=== PATIENT | female | born 1950 | race Caucasian/White ===

== ENCOUNTER → 2016-05-13 | Outpatient (CLI) | payer BC ==
--- NOTE | 2016-05-13 13:42 | XR ---
EXAMINATION TYPE: XR cervical spine limited DATE OF EXAM: 05/13/2016 1:25 PM TECHNIQUE: Frontal, lateral, and open mouth view of the cervical spine are obtained. HISTORY: Neck pain, segmental and somatic dysfunction. COMPARISON: None FINDINGS: The cervical spine is visualized in its entirety from C1 thru the top of T1 level, it is s traightened in alignment without evidence of acute fracture or dislocation. There is slight grade 1 r etrolisthesis of C5 on C6. The pre-vertebral soft tissue appears within normal limits. The C1-C2 art iculation is within normal limits on the open mouth view. Vertebral body heights are maintained. Ther e is moderate disc space narrowing C5-C6 and C6-C7 levels with mild to moderate spurring at these lev els noted. Soft tissue is unremarkable. IMPRESSION: Straightening of cervical spine with mild to moderate degenerative changes C5-C6 and C6-C 7 level noted.
--- NOTE | 2016-05-13 13:43 | XR ---
EXAMINATION TYPE: XR lumbar spine 2 or 3V DATE OF EXAM: 05/13/2016 1:25 PM CLINICAL HISTORY: Low back and right hip pain. TECHNIQUE: Frontal and lateral images of the lumbar spine are obtained. COMPARISON: None FINDINGS: There are 5 lumbar type vertebral bodies identified. Osseous structures are demineralized which is noted lower radiographic sensitivity. The lumbar spine shows loss of normal lumbar lordosis without evidence of acute fracture or dislocation. Vertebral body heights are within normal limits. There is fairly moderate multilevel disc space narrowing at L1-L2, L2-L3, and L5-S1 levels. No signif icant spurring is seen. Punctate densities overlying both kidneys are suspicious for multiple small r enal calculi. IMPRESSION: Loss of normal lumbar lordosis with moderate multilevel degenerative changes. Multiple bi lateral small renal calculi suspected. Consider CT confirmation.
== END | disposition home or self-care (01) ==
LOC: RADXRMAIN 13:01
PROVIDERS: ATTEND Chiropractor
DX: M47.812 Spondylosis without myelopathy or radiculopathy, cervical region (principal); M47.816 Spondylosis without myelopathy or radiculopathy, lumbar region
CPT/HCPCS: 72040; 72100

== ENCOUNTER 2016-12-11 13:08 | Inpatient (IN) | payer BC, MEDICARE ==
[2016-12-11] MEDS ORDERED: SODIUM CHLORIDE 0.9% 1,000 ML IV STA ×2 (13:53)
[2016-12-11] MEDS ORDERED: ACETAMINOPHEN IV (For NPO) 1,000 MG in SALINE 100 100ML.BAG IVPB STA (13:54)
--- NOTE | 2016-12-11 13:56 | ED ---
General Adult HPI - General Chief complaint: Abdominal Pain Stated complaint: poss kidney stones-sent by Time Seen by Provider: 12/11/16 13:47 Source: patient, RN notes reviewed Mode of arrival: wheelchair Limitations: no limitations - History of Present Illness Initial comments: Patient 66-year-old female who presents emergency room today with a chief complaint of lower abdominal pain and a right-sided flank pain over the last day. Patient does admit to symptoms of nausea vomiting. She states she's also felt hot and cold. She does admit that she's had chills. She states she was taking Tylenol/ibuprofen for fever. States not taken anything since 5 AM this morning. The patient does admit to pain locally to the lower back at this time which she states feels consistent with kidney stone that she's had in the past. Patient currently rates pain 10. Patient denies any recent fever, chills, shortness of breath, chest pain, numbness or tingling, dysuria or hematuria, constipation or diarrhea, headaches or visual changes, or any other complaints. - Related Data Home Medications Medication Instructions Recorded Confirmed Aloe Vera Juice 1.5 oz PO Q48H 12/11/16 12/11/16 Aspirin EC [Ecotrin Low Dose] 81 mg PO DAILY 12/11/16 12/11/16 Calcium Carbonate/Vitamin D3 1 tab PO DAILY 12/11/16 12/11/16 [Calcium 500-Vit D3 600 Tablet] Cholecalciferol [Vitamin D3] 1,000 unit PO DAILY 12/11/16 12/11/16 Cranberry And Vitamin C 1 tab PO DAILY 12/11/16 12/11/16 L.acidoph,Paracasei, B.lactis 1 cap PO DAILY 12/11/16 12/11/16 [Probiotic] Magnesium 200 mg PO DAILY 12/11/16 12/11/16 Seven Red Krill Oil 1 tab PO DAILY 12/11/16 12/11/16 Multivitamins, Thera [Multivitamin 1 tab PO DAILY 12/11/16 12/11/16 (formulary)] Potassium 99 mg PO DAILY 12/11/16 12/11/16 Turmeric Root Extract [Turmeric] 500 mg PO DAILY 12/11/16 12/11/16 Ubidecarenone [Co Q-10] 100 mg PO DAILY 12/11/16 12/11/16 Vitamin K2 & Vitamin D3 1 tab PO DAILY 12/11/16 12/11/16 Allergies Allergy/AdvReac Type Severity Reaction Status Date / Time No Known Allergies Allergy Verified 12/11/16 13:26 Review of Systems ROS Statement: Those systems with pertinent positive or pertinent negative responses have been documented in the HPI. ROS Other: All systems not noted in ROS Statement are negative. Past Medical History Past Medical History: No Reported History History of Any Multi-Drug Resistant Organisms: None Reported Past Surgical History: Tonsillectomy Additional Past Surgical History / Comment(s): nose, toes Past Psychological History: No Psychological Hx Reported Smoking Status: Never smoker Past Alcohol Use History: Occasional Past Drug Use History: None Reported General Exam - General Exam Comments Initial Comments: General: The patient is awake and alert, in no distress, and does not appear acutely ill. Eye: Pupils are equal, round and reactive to light, extra-ocular movements are intact. No nystagmus. There is normal conjunctiva bilaterally. No signs of icterus. Ears, nose, mouth and throat: There are moist mucous membranes and no oral lesions. Neck: The neck is supple, there is no tenderness or JVD. Cardiovascular: There is a regular rate and rhythm. No murmur, rub or gallop is appreciated. Respiratory: Lungs are clear to auscultation, respirations are non-labored, breath sounds are equal. No wheezes, stridor, rales, or rhonchi. Gastrointestinal: Normal appearance abdomen. Normal bowel sounds. Abdomen soft on palpation. Patient does have mild tenderness in the left upper quadrant. Mild tenderness left CVA. No rebound tenderness. No guarding. Musculoskeletal: Normal ROM, no tenderness. Strength 5/5. Sensation intact. Pulses equal bilaterally 2+. Neurological: A&O x 3. CN II-XII intact, There are no obvious motor or sensory deficits. Coordination appears grossly intact. Speech is normal. Skin: Skin is warm and dry and no rashes or lesions are noted. Psychiatric: Cooperative, appropriate mood & affect, normal judgment. Limitations: no limitations Course Vital Signs 12/11/16 12/11/16 12/11/16 13:10 14:36 16:02 Temperature 101.0 F H 99.7 F H 100.1 F H Pulse Rate 110 H 104 H 94 Respiratory 17 18 18 Rate Blood Pressure 171/100 155/74 135/62 O2 Sat by Pulse 98 97 95 Oximetry Medical Decision Making - Medical Decision Making Patient's CAT scan reviewed does show multiple small bilateral nonobstructing renal calculi, left more numerous than the right. There is no obstructing 3 mm calculus at the left UVJ causing mild to moderate left-sided hydronephrosis. Patient's labs been reviewed shows 15,000 white count. Patient negative lactic acid. Urinalysis does show evidence for infection. Started on Rocephin here in the emergency room. Patient does have fever at triage. Will be admitted continued on further antibiotics. Patient and family at bedside aware the plan states understanding. - Lab Data Result diagrams: 12/11/16 13:40 12/11/16 13:40 Lab Results 12/11/16 12/11/16 12/11/16 Range/Units 13:40 13:40 13:40 WBC 15.3 H (3.8-10.6) k/uL RBC 4.62 (3.80-5.40) m/uL Hgb 14.0 (11.4-16.0) gm/dL Hct 42.4 (34.0-46.0) % MCV 91.8 (80.0-100.0) fL MCH 30.3 (25.0-35.0) pg MCHC 33.0 (31.0-37.0) g/dL RDW 15.0 (11.5-15.5) % Plt Count 179 (150-450) k/uL Neutrophils % 93 % Lymphocytes % 2 % Monocytes % 5 % Eosinophils % 0 % Basophils % 0 % Neutrophils # 14.2 H (1.3-7.7) k/uL Lymphocytes # 0.3 L (1.0-4.8) k/uL Monocytes # 0.7 (0-1.0) k/uL Eosinophils # 0.0 (0-0.7) k/uL Basophils # 0.0 (0-0.2) k/uL Sodium 134 L (137-145) mmol/L Potassium 3.3 L (3.5-5.1) mmol/L Chloride 98 (98-107) mmol/L Carbon Dioxide 23 (22-30) mmol/L Anion Gap 13 mmol/L BUN 19 H (7-17) mg/dL Creatinine 0.86 (0.52-1.04) mg/dL Est GFR (MDRD) Af Amer >60 (>60 ml/min/1.73 sqM) Est GFR (MDRD) Non-Af >60 (>60 ml/min/1.73 sqM) Glucose 108 H (74-99) mg/dL Plasma Lactic Acid Mina 1.2 (0.7-2.0) mmol/L Calcium 9.0 (8.4-10.2) mg/dL Total Bilirubin 2.0 H (0.2-1.3) mg/dL AST 30 (14-36) U/L ALT 31 (9-52) U/L Alkaline Phosphatase 86 (38-126) U/L Total Protein 6.8 (6.3-8.2) g/dL Albumin 4.0 (3.5-5.0) g/dL Amylase 37 (30-110) U/L Lipase 60 (23-300) U/L Urine Color Urine Appearance (Clear) Urine pH (5.0-8.0) Ur Specific [place] (1.001-1.035) Urine Protein (Negative) Urine Glucose (UA) (Negative) Urine Ketones (Negative) Urine Blood (Negative) Urine Nitrite (Negative) Urine Bilirubin (Negative) Urine Urobilinogen (<2.0) mg/dL Ur Leukocyte Esterase (Negative) Urine RBC (0-5) /hpf Urine WBC (0-5) /hpf Urine WBC Clumps (None) /hpf Ur Squamous Epith Cells (0-4) /hpf Urine Bacteria (None) /hpf Urine Mucus (None) /hpf 12/11/16 Range/Units 13:55 WBC (3.8-10.6) k/uL RBC (3.80-5.40) m/uL Hgb (11.4-16.0) gm/dL Hct (34.0-46.0) % MCV (80.0-100.0) fL MCH (25.0-35.0) pg MCHC (31.0-37.0) g/dL RDW (11.5-15.5) % Plt Count (150-450) k/uL Neutrophils % % Lymphocytes % % Monocytes % % Eosinophils % % Basophils % % Neutrophils # (1.3-7.7) k/uL Lymphocytes # (1.0-4.8) k/uL Monocytes # (0-1.0) k/uL Eosinophils # (0-0.7) k/uL Basophils # (0-0.2) k/uL Sodium (137-145) mmol/L Potassium (3.5-5.1) mmol/L Chloride (98-107) mmol/L Carbon Dioxide (22-30) mmol/L Anion Gap mmol/L BUN (7-17) mg/dL Creatinine (0.52-1.04) mg/dL Est GFR (MDRD) Af Amer (>60 ml/min/1.73 sqM) Est GFR (MDRD) Non-Af (>60 ml/min/1.73 sqM) Glucose (74-99) mg/dL Plasma Lactic Acid Mina (0.7-2.0) mmol/L Calcium (8.4-10.2) mg/dL Total Bilirubin (0.2-1.3) mg/dL AST (14-36) U/L ALT (9-52) U/L Alkaline Phosphatase (38-126) U/L Total Protein (6.3-8.2) g/dL Albumin (3.5-5.0) g/dL Amylase (30-110) U/L Lipase (23-300) U/L Urine Color Yellow Urine Appearance Cloudy H (Clear) Urine pH 7.0 (5.0-8.0) Ur Specific [place] 1.010 (1.001-1.035) Urine Protein 2+ H (Negative) Urine Glucose (UA) Negative (Negative) Urine Ketones 1+ H (Negative) Urine Blood Small H (Negative) Urine Nitrite Positive H (Negative) Urine Bilirubin Negative (Negative) Urine Urobilinogen <2.0 (<2.0) mg/dL Ur Leukocyte Esterase Large H (Negative) Urine RBC 22 H (0-5) /hpf Urine WBC 138 H (0-5) /hpf Urine WBC Clumps Moderate H (None) /hpf Ur Squamous Epith Cells 1 (0-4) /hpf Urine Bacteria Moderate H (None) /hpf Urine Mucus Occasional H (None) /hpf Disposition Clinical Impression: Kidney stone, Fever, UTI (urinary tract infection) Disposition: ADMITTED IP TO THIS HOSP Condition: Stable Referrals: Vinny Calles MD [Primary Care Provider] - 1-2 days Time of Disposition: 16:15
[2016-12-11 14:06] LABS: Basophils % (A) 0 %; CH 31.1; CHCM 34.1; Eosinophils % (A) 0 %; HCT 42.4 % (34.0-46.0); HDW 2.41; Luc % (Auto) 1; Lymphocytes # (A) 0.3 k/uL (1.0-4.8); Lymphocytes % (A) 2 %; MCH 30.3 pg (25.0-35.0); MCV 91.8 fL (80.0-100.0); Monocytes # (A) 0.7 k/uL (0-1.0); Monocytes % (A) 5 %; Neutrophils # (A) 14.2 k/uL (1.3-7.7); Neutrophils % (A) 93 %; RBC 4.62 m/uL (3.80-5.40); WBC 15.3 k/uL (3.8-10.6)
[2016-12-11 14:14] LABS: Appearance,Urine Cloudy (Clear); Bacteria,Urine Moderate /hpf; Bilirubin,Urine Negative (Negative); Glucose,Urine (UA) Negative (Negative); Ketones,Urine 1+ (Negative); Leukocyte Esterase,Urine Large (Negative); Mucus,Urine Occasional /hpf; Nitrite,Urine Positive (Negative); Particle Count 5513; Protein,Urine 2+ (Negative); RBC,Urine 22 /hpf (0-5); Squamous Epithelial Cell,Urine 1 /hpf (0-4); UA Billing (MACRO vs. MICRO) MICRO; Urobilinogen,Urine <2.0 mg/dL (<2.0); WBC,Urine 138 /hpf (0-5)
[2016-12-11 14:19] LABS: ALT 31 U/L (9-52); AST 30 U/L (14-36); Alkaline Phosphatase 86 U/L (38-126); Amylase 37 U/L (30-110); Anion Gap 13 mmol/L; Blood Urea Nitrogen 19 mg/dL (7-17); Carbon Dioxide 23 mmol/L (22-30); Chloride 98 mmol/L (98-107); Glucose 108 mg/dL (74-99); Non-African American GFR(MDRD) >60 (>60 ml/min/1.73 sqM); Potassium 3.3 mmol/L (3.5-5.1); Sodium 134 mmol/L (137-145); Total Protein 6.8 g/dL (6.3-8.2)
[2016-12-11] MEDS ORDERED: KETOROLAC 30 MG/ML 1 ML VIAL IVP STA (15:13)
--- NOTE | 2016-12-11 15:44 | CT ---
EXAMINATION TYPE: CT abdomen pelvis wo con DATE OF EXAM: 12/11/2016 HISTORY: Left flank pain, history of stones. CT DLP: 908.00 mGycm. Automated Exposure Control for Dose Reduction was Utilized. TECHNIQUE: CT scan of the abdomen and pelvis is performed without oral or IV contrast. COMPARISON: NONE FINDINGS: Within the limitations of a non-contrast study, the following observations are made. LUNG BASES: Tiny pericardial effusion is present. There is dependent atelectasis in both bases. LIVER/GB: Liver is diffusely low dense consistent with fatty infiltration. There are a few simple patricia earing thin-walled cysts scattered throughout the liver. PANCREAS: No significant abnormality is seen. SPLEEN: No significant abnormality is seen. ADRENALS: There is slight nodular thickening to left adrenal gland felt to reflect benign hyperplasia . KIDNEYS: There are 6-10 calculi scattered throughout the right kidney measuring up to 4 mm on long ax is most prominent lower pole level. There are approximately 15 calculi scattered throughout the left kidney measuring up to 5 mm on long axis. There is asymmetric left-sided renal enlargement with mild to moderate perinephric fat stranding extending along course of the proximal left ureter. At left UVJ there is obstructing 3 mm calculus causing mild to moderate left-sided pyelocaliectasis and proximal hydroureter. No right-sided hydronephrosis or obstructing calculus is seen. No intraluminal calculus in the bladder is present. BOWEL: Normal-appearing appendix is seen inferiorly from the cecum. There is no suspicious small or l arge bowel dilatation. GENITAL ORGANS: Uterus is retroverted in shape and normal in size. Small amount of free fluid in righ t pelvic cul-de-sac is noted. LYMPH NODES: No greater than 1cm abdominal or pelvic lymph nodes are appreciated. OSSEOUS STRUCTURES: Osseous structures are demineralized. Facet arthropathy lower lumbar levels is se en. OTHER: No significant additional abnormality is seen. IMPRESSION: Multiple small bilateral nonobstructing renal calculi, left more numerous than right. The re is obstructing 3 mm calculus at left UVJ causing mild to moderate left-sided hydronephrosis.
[2016-12-11] MEDS ORDERED: HYDROmorphone 1 MG/ML 1 ML SYRINGE IV PRN (16:55)
[2016-12-11] MEDS ORDERED: LORazepam 2 MG/ML SYRINGE IV PRN (16:55)
[2016-12-11] MEDS ORDERED: NALOXONE 0.4 MG/ML 1 ML VIAL IV PRN (16:55)
[2016-12-11] MEDS ORDERED: ONDANSETRON 4 MG/2 ML VIAL IVP PRN (16:55)
[2016-12-11] MEDS ORDERED: IBUPROFEN 400 MG TAB PO PRN (16:55)
--- NOTE | 2016-12-11 18:18 | P.HPIM ---
History of Present Illness 66-year-old pleasant female came in with compensative superpubic pain, fever chills patient was seen in the primary care physician's office and the found to have fever and patient was sent in here because of concerns of sepsis. Patient here is found to have highly elevated white blood cell count in the urine along with mild hematuria and CAT scan of the abdomen was obtained which did show bilateral nonobstructing nephrolithiasis. Patient was in the past was told that she has calcium oxalate stones in the past. All the kidney stones or nonobstructing at this time. Patient pain is presently well controlled with pain medications. Patient was having nausea as well as generalized weakness. Patient does have leukocytosis. Review of Systems REVIEW OF SYSTEMS: CONSTITUTIONAL: No fever, no malaise, no fatigue. HEENT: No recent visual problems or hearing problems. Denied any sore throat. CARDIOVASCULAR: No chest pain, orthopnea, PND, no palpitations, no syncope. PULMONARY: No shortness of breath, no cough, no hemoptysis. GASTROINTESTINAL: No diarrhea, no nausea, no vomiting, no abdominal pain. Normoactive bowel sounds. NEUROLOGICAL: No headaches, no weakness, no numbness. HEMATOLOGICAL: Denies any bleeding or petechiae. GENITOURINARY: As mentioned in the interval history MUSCULOSKELETAL/RHEUMATOLOGICAL: Denies any joint pain, swelling, or any muscle pain. ENDOCRINE: Denies any polyuria or polydipsia. The rest of the 14-point review of systems is negative. Past Medical History Past Medical History: No Reported History History of Any Multi-Drug Resistant Organisms: None Reported Past Surgical History: Tonsillectomy Additional Past Surgical History / Comment(s): nose, toes Past Psychological History: No Psychological Hx Reported Smoking Status: Never smoker Past Alcohol Use History: Occasional Past Drug Use History: None Reported Medications and Allergies Home Medications Medication Instructions Recorded Confirmed Type Aloe Vera Juice 1.5 oz PO Q48H 12/11/16 12/11/16 History Aspirin EC [Ecotrin Low Dose] 81 mg PO DAILY 12/11/16 12/11/16 History Calcium Carbonate/Vitamin D3 1 tab PO DAILY 12/11/16 12/11/16 History [Calcium 500-Vit D3 600 Tablet] Cholecalciferol [Vitamin D3] 1,000 unit PO DAILY 12/11/16 12/11/16 History Cranberry And Vitamin C 1 tab PO DAILY 12/11/16 12/11/16 History L.acidoph,Paracasei, B.lactis 1 cap PO DAILY 12/11/16 12/11/16 History [Probiotic] Magnesium 200 mg PO DAILY 12/11/16 12/11/16 History Seven Red Krill Oil 1 tab PO DAILY 12/11/16 12/11/16 History Multivitamins, Thera [Multivitamin 1 tab PO DAILY 12/11/16 12/11/16 History (formulary)] Potassium 99 mg PO DAILY 12/11/16 12/11/16 History Turmeric Root Extract [Turmeric] 500 mg PO DAILY 12/11/16 12/11/16 History Ubidecarenone [Co Q-10] 100 mg PO DAILY 12/11/16 12/11/16 History Vitamin K2 & Vitamin D3 1 tab PO DAILY 12/11/16 12/11/16 History Allergies Allergy/AdvReac Type Severity Reaction Status Date / Time No Known Allergies Allergy Verified 12/11/16 13:26 Physical Exam Vitals: Vital Signs Temp Pulse Resp BP Pulse Ox 12/11/16 17:24 99.8 F H 90 18 136/65 96 12/11/16 16:02 100.1 F H 94 18 135/62 95 12/11/16 14:36 99.7 F H 104 H 18 155/74 97 12/11/16 13:10 101.0 F H 110 H 17 171/100 98 Intake and Output 12/11/16 12/11/16 12/11/16 06:59 14:59 22:59 Other: Weight 62.142 kg Patient Weight 12/12/16 06:59 Weight 62.142 kg PHYSICAL EXAMINATION: GENERAL: The patient is alert and oriented x3, not in any acute distress. Well developed, well nourished. HEENT: Pupils are round and equally reacting to light. EOMI. No scleral icterus. No conjunctival pallor. Normocephalic, atraumatic. No pharyngeal erythema. No thyromegaly. CARDIOVASCULAR: S1 and S2 present. No murmurs, rubs, or gallops. PULMONARY: Chest is clear to auscultation, no wheezing or crackles. ABDOMEN: Soft, nontender, nondistended, normoactive bowel sounds. No palpable organomegaly. MUSCULOSKELETAL: No joint swelling or deformity. EXTREMITIES: No cyanosis, clubbing, or pedal edema. NEUROLOGICAL: Gross neurological examination did not reveal any focal deficits. SKIN: No rashes. Results CBC & Chem 7: 12/11/16 13:40 12/11/16 13:40 Labs: Abnormal Lab Results - Last 24 Hours (Table) 12/11/16 12/11/16 12/11/16 Range/Units 13:40 13:40 13:55 WBC 15.3 H (3.8-10.6) k/uL Neutrophils # 14.2 H (1.3-7.7) k/uL Lymphocytes # 0.3 L (1.0-4.8) k/uL Sodium 134 L (137-145) mmol/L Potassium 3.3 L (3.5-5.1) mmol/L BUN 19 H (7-17) mg/dL Glucose 108 H (74-99) mg/dL Total Bilirubin 2.0 H (0.2-1.3) mg/dL Urine Appearance Cloudy H (Clear) Urine Protein 2+ H (Negative) Urine Ketones 1+ H (Negative) Urine Blood Small H (Negative) Urine Nitrite Positive H (Negative) Ur Leukocyte Esterase Large H (Negative) Urine RBC 22 H (0-5) /hpf Urine WBC 138 H (0-5) /hpf Urine WBC Clumps Moderate H (None) /hpf Urine Bacteria Moderate H (None) /hpf Urine Mucus Occasional H (None) /hpf Assessment and Plan Plan: 1 sepsis: Secondary to urinary tract infection and nephrolithiasis. Patient is on Rocephin urine cultures and blood cultures were obtained. Continue with IV fluids. #2 hypovolemic hyponatremia: Expected to improve with IV fluids. #3 nonobstructive nephrolithiasis: Expected to improve with IV fluids and patient really to follow with urology as an outpatient. #4 leukocytosis due to assessment #1
[2016-12-11] MEDS: KETOROLAC 30 MG/ML 1 ML VIAL IVP PRN (20:25)
[2016-12-11] MEDS: HYDROcodone/APAP 5-325MG 1 EACH TAB PO PRN (20:26)
[2016-12-11] MEDS: ACETAMINOPHEN TAB 325 MG TAB PO PRN (21:24)
[2016-12-12] MEDS: KETOROLAC 30 MG/ML 1 ML VIAL IVP PRN ×3 (03:08→22:37)
[2016-12-12] MEDS: HYDROcodone/APAP 5-325MG 1 EACH TAB PO PRN ×4 (06:14→19:27)
[2016-12-12] MEDS: ACETAMINOPHEN TAB 325 MG TAB PO PRN (06:21)
[2016-12-12 07:45] LABS: Basophils % (A) 0 %; CHCM 32.9; Eosinophils # (A) 0.1 k/uL (0-0.7); Eosinophils % (A) 1 %; HCT 35.5 % (34.0-46.0); Luc # (Auto) 0.09; Luc % (Auto) 1; Lymphocytes # (A) 0.3 k/uL (1.0-4.8); Lymphocytes % (A) 3 %; MCHC 33.9 g/dL (31.0-37.0); MCV 91.6 fL (80.0-100.0); Mean Platelet Volume 7.7; Monocytes # (A) 0.4 k/uL (0-1.0); Monocytes % (A) 3 %; Neutrophils # (A) 9.7 k/uL (1.3-7.7); Neutrophils % (A) 93 %; RBC 3.88 m/uL (3.80-5.40); RDW 13.8 % (11.5-15.5); WBC 10.5 k/uL (3.8-10.6); WBC (Perox) 11.01
[2016-12-12 08:11] LABS: ALT 41 U/L (9-52); AST 31 U/L (14-36); Alkaline Phosphatase 70 U/L (38-126); Anion Gap 7 mmol/L; Blood Urea Nitrogen 19 mg/dL (7-17); Calcium 7.9 mg/dL (8.4-10.2); Carbon Dioxide 20 mmol/L (22-30); Chloride 109 mmol/L (98-107); Glucose 100 mg/dL (74-99); Non-African American GFR(MDRD) >60 (>60 ml/min/1.73 sqM); Potassium 3.4 mmol/L (3.5-5.1); Sodium 136 mmol/L (137-145)
--- NOTE | 2016-12-12 12:18 | P.PN ---
Subjective 66-year-old pleasant female admitted secondary to sepsis from urinary tract infection patient is found to be bacteremic with gram-negative bacilli. Patient does have nephrolithiasis multiple small nonobstructing renal calculi. We will repeat blood cultures today tomorrow to document clearance. Patient will be continued on Rocephin. Patient is feeling much better today, denied any weakness. Denied any dysuria denied any urinary frequency denied any chest pain denied any nausea denied any new focal weakness. Objective - Vital Signs Vital signs: Vital Signs Temp 99.4 F 12/12/16 07:00 Pulse 96 12/12/16 07:00 Resp 18 12/12/16 07:00 BP 120/66 12/12/16 07:00 Pulse Ox 93 L 12/12/16 07:00 Intake & Output 12/11/16 12/12/16 12/12/16 18:59 06:59 18:59 Intake Total 1020 Balance 1020 Weight 62.142 kg Intake: Intake, IV Titration 300 Amount Sodium Chloride 0.9% 1, 300 000 ml @ 100 mls/hr IV . Q10H STA Rx#:[id number] Oral 720 Other: Voiding Method Toilet # Voids 3 - Exam PHYSICAL EXAMINATION: GENERAL: The patient is alert and oriented x3, not in any acute distress. Well developed, well nourished. HEENT: Pupils are round and equally reacting to light. EOMI. No scleral icterus. No conjunctival pallor. Normocephalic, atraumatic. No pharyngeal erythema. No thyromegaly. CARDIOVASCULAR: S1 and S2 present. No murmurs, rubs, or gallops. PULMONARY: Chest is clear to auscultation, no wheezing or crackles. ABDOMEN: Soft, nontender, nondistended, normoactive bowel sounds. No palpable organomegaly. MUSCULOSKELETAL: No joint swelling or deformity. EXTREMITIES: No cyanosis, clubbing, or pedal edema. NEUROLOGICAL: Gross neurological examination did not reveal any focal deficits. SKIN: No rashes. - Labs CBC & Chem 7: 12/12/16 07:29 12/12/16 07:29 Labs: Abnormal Lab Results - Last 24 Hours (Table) 12/11/16 12/11/16 12/11/16 Range/Units 13:40 13:40 13:55 WBC 15.3 H (3.8-10.6) k/uL Plt Count (150-450) k/uL Neutrophils # 14.2 H (1.3-7.7) k/uL Lymphocytes # 0.3 L (1.0-4.8) k/uL Sodium 134 L (137-145) mmol/L Potassium 3.3 L (3.5-5.1) mmol/L Chloride (98-107) mmol/L Carbon Dioxide (22-30) mmol/L BUN 19 H (7-17) mg/dL Glucose 108 H (74-99) mg/dL Calcium (8.4-10.2) mg/dL Total Bilirubin 2.0 H (0.2-1.3) mg/dL Total Protein (6.3-8.2) g/dL Albumin (3.5-5.0) g/dL Urine Appearance Cloudy H (Clear) Urine Protein 2+ H (Negative) Urine Ketones 1+ H (Negative) Urine Blood Small H (Negative) Urine Nitrite Positive H (Negative) Ur Leukocyte Esterase Large H (Negative) Urine RBC 22 H (0-5) /hpf Urine WBC 138 H (0-5) /hpf Urine WBC Clumps Moderate H (None) /hpf Urine Bacteria Moderate H (None) /hpf Urine Mucus Occasional H (None) /hpf 12/12/16 12/12/16 Range/Units 07:29 07:29 WBC (3.8-10.6) k/uL Plt Count 131 L (150-450) k/uL Neutrophils # 9.7 H (1.3-7.7) k/uL Lymphocytes # 0.3 L (1.0-4.8) k/uL Sodium 136 L (137-145) mmol/L Potassium 3.4 L (3.5-5.1) mmol/L Chloride 109 H (98-107) mmol/L Carbon Dioxide 20 L (22-30) mmol/L BUN 19 H (7-17) mg/dL Glucose 100 H (74-99) mg/dL Calcium 7.9 L (8.4-10.2) mg/dL Total Bilirubin (0.2-1.3) mg/dL Total Protein 5.0 L (6.3-8.2) g/dL Albumin 2.7 L (3.5-5.0) g/dL Urine Appearance (Clear) Urine Protein (Negative) Urine Ketones (Negative) Urine Blood (Negative) Urine Nitrite (Negative) Ur Leukocyte Esterase (Negative) Urine RBC (0-5) /hpf Urine WBC (0-5) /hpf Urine WBC Clumps (None) /hpf Urine Bacteria (None) /hpf Urine Mucus (None) /hpf Microbiology - Last 24 Hours (Table) 12/11/16 13:40 Blood Culture Gram Stain - Preliminary Blood 12/11/16 13:40 Blood Culture - Preliminary Blood Assessment and Plan Plan: 1 sepsis: Bacteremia Secondary to urinary tract infection and nephrolithiasis. Will be continued on Rocephin and repeat blood cultures will be obtained. #2 hypovolemic hyponatremia: Expected to improve with IV fluids. #3 nonobstructive nephrolithiasis: Expected to improve with IV fluids and patient really to follow with urology as an outpatient. #4 leukocytosis due to assessment #1
[2016-12-12] MEDS: SODIUM CHLORIDE 0.9% 1,000 ML IV SCH ×2 (19:29→22:50)
[2016-12-13] MEDS: HYDROcodone/APAP 5-325MG 1 EACH TAB PO PRN ×4 (06:02→19:37)
[2016-12-13] MEDS: KETOROLAC 30 MG/ML 1 ML VIAL IVP PRN ×2 (06:28→21:37)
[2016-12-13 07:08] LABS: CH 30.8; CHCM 32.9; HCT 35.7 % (34.0-46.0); HDW 2.62; HGB 11.5 gm/dL (11.4-16.0); MCH 30.3 pg (25.0-35.0); MCHC 32.2 g/dL (31.0-37.0); MCV 94.1 fL (80.0-100.0); Mean Platelet Volume 8.3; RDW 14.2 % (11.5-15.5); WBC 7.1 k/uL (3.8-10.6)
[2016-12-13 07:23] LABS: Anion Gap 9 mmol/L; Blood Urea Nitrogen 16 mg/dL (7-17); Calcium 7.8 mg/dL (8.4-10.2); Carbon Dioxide 18 mmol/L (22-30); Chloride 110 mmol/L (98-107); Glucose 123 mg/dL (74-99); Non-African American GFR(MDRD) >60 (>60 ml/min/1.73 sqM); Potassium 3.2 mmol/L (3.5-5.1); Sodium 137 mmol/L (137-145)
[2016-12-13] MEDS: SODIUM CHLORIDE 0.9% 1,000 ML IV SCH (08:05)
--- NOTE | 2016-12-13 11:26 | P.PN ---
Subjective 66-year-old pleasant female admitted secondary to sepsis from urinary tract infection patient is found to be bacteremic with gram-negative bacilli. Patient does have nephrolithiasis multiple small nonobstructing renal calculi. We will repeat blood cultures today tomorrow to document clearance. Patient will be continued on Rocephin. 12/13/2016 No overnight events. Patient is feeling much better today, denied any weakness. Denied any dysuria denied any urinary frequency denied any chest pain denied any nausea denied any new focal weakness. Objective - Vital Signs Vital signs: Vital Signs Temp 98.8 F 12/13/16 07:00 Pulse 102 H 12/13/16 07:00 Resp 16 12/13/16 07:00 BP 143/65 12/13/16 07:00 Pulse Ox 92 L 12/12/16 23:06 Intake & Output 12/12/16 12/13/16 12/13/16 18:59 06:59 18:59 Intake Total 800 1921 Balance 800 1921 Intake: Intake, IV Titration 800 1921 Amount Sodium Chloride 0.9% 1, 800 1921 000 ml @ 100 mls/hr IV . Q10H [facility] Rx#:[id number] Other: Voiding Method Toilet Toilet Toilet # Voids 2 - Exam PHYSICAL EXAMINATION: GENERAL: The patient is alert and oriented x3, not in any acute distress. Well developed, well nourished. HEENT: Pupils are round and equally reacting to light. EOMI. No scleral icterus. No conjunctival pallor. Normocephalic, atraumatic. No pharyngeal erythema. No thyromegaly. CARDIOVASCULAR: S1 and S2 present. No murmurs, rubs, or gallops. PULMONARY: Chest is clear to auscultation, no wheezing or crackles. ABDOMEN: Soft, nontender, nondistended, normoactive bowel sounds. No palpable organomegaly. MUSCULOSKELETAL: No joint swelling or deformity. EXTREMITIES: No cyanosis, clubbing, or pedal edema. NEUROLOGICAL: Gross neurological examination did not reveal any focal deficits. SKIN: No rashes. - Labs CBC & Chem 7: 12/13/16 06:50 12/13/16 06:50 Labs: Abnormal Lab Results - Last 24 Hours (Table) 12/13/16 12/13/16 Range/Units 06:50 06:50 Plt Count 133 L (150-450) k/uL Potassium 3.2 L (3.5-5.1) mmol/L Chloride 110 H (98-107) mmol/L Carbon Dioxide 18 L (22-30) mmol/L Glucose 123 H (74-99) mg/dL Calcium 7.8 L (8.4-10.2) mg/dL Microbiology - Last 24 Hours (Table) 12/12/16 07:29 Blood Culture - Preliminary Blood No Growth after 24 hours 12/11/16 13:40 Blood Culture Gram Stain - Preliminary Blood Blood Culture - Preliminary Gram Neg Bacilli Assessment and Plan Plan: 1 sepsis: Bacteremia Secondary to urinary tract infection and nephrolithiasis. Will be continued on Rocephin and repeat blood cultures will be obtained. The blood cultures so far negative we will able will have to wait for at least 48- 72 hours for them to stay negative before we document clearance. Finalization of the initial blood cultures is still pending #2 hypovolemic hyponatremia: Expected to improve with IV fluids. #3 nonobstructive nephrolithiasis: Expected to improve with IV fluids and patient really to follow with urology as an outpatient. #4 leukocytosis due to assessment #1
[2016-12-13] MEDS: POTASSIUM CHLORIDE ER 20 MEQ TAB.ER PO SCH ×2 (12:52→14:07)
--- NOTE | 2016-12-13 16:08 | XR ---
EXAMINATION TYPE: XR chest 2V DATE OF EXAM: 12/13/2016 COMPARISON: None HISTORY: 66-year-old female with cough and shortness of breath TECHNIQUE: Frontal and lateral views FINDINGS: The heart is normal size. Aorta within normal limits. However, there is diffuse interstitial prominen ce and interstitial densities with small left greater than right pleural effusions and adjacent opaci ty. IMPRESSION: 1. Prominent interstitial densities. Correlate for mild CHF, interstitial pneumonitis, or atypical pn eumonias. 2. Small effusions with adjacent atelectasis and/or consolidation.
[2016-12-13] MEDS ORDERED: FUROSEMIDE 10 MG/ML 4 ML VIAL IV STA (16:30)
[2016-12-14] MEDS: HYDROcodone/APAP 5-325MG 1 EACH TAB PO PRN ×3 (03:33→10:35)
[2016-12-14 08:01] LABS: Anion Gap 9 mmol/L; Blood Urea Nitrogen 15 mg/dL (7-17); Calcium 8.2 mg/dL (8.4-10.2); Carbon Dioxide 25 mmol/L (22-30); Chloride 105 mmol/L (98-107); Glucose 87 mg/dL (74-99); Non-African American GFR(MDRD) >60 (>60 ml/min/1.73 sqM); Potassium 3.8 mmol/L (3.5-5.1); Sodium 139 mmol/L (137-145)
[2016-12-14 08:18] LABS: Basophils % (A) 0 %; CH 30.1; CHCM 32.5; Eosinophils # (A) 0.1 k/uL (0-0.7); Eosinophils % (A) 1 %; HCT 36.5 % (34.0-46.0); HDW 2.72; HGB 12.1 gm/dL (11.4-16.0); Luc % (Auto) 3; Lymphocytes # (A) 0.8 k/uL (1.0-4.8); Lymphocytes % (A) 13 %; MCH 30.8 pg (25.0-35.0); MCHC 33.1 g/dL (31.0-37.0); MCV 93.1 fL (80.0-100.0); Mean Platelet Volume 7.2; Monocytes # (A) 0.4 k/uL (0-1.0); Monocytes % (A) 7 %; Neutrophils # (A) 4.8 k/uL (1.3-7.7); Neutrophils % (A) 75 %; RBC 3.92 m/uL (3.80-5.40); RDW 14.2 % (11.5-15.5); WBC 6.3 k/uL (3.8-10.6); WBC (Perox) 5.94
[2016-12-14 08:30] VITALS: BP 160/77; PULSE 87; RESP 16; TEMP 98.1
[2016-12-14] MEDS: MORPHINE SULFATE 4 MG/ML SYRINGE IVP PRN ×2 (09:00→10:06)
--- NOTE | 2016-12-14 10:09 | XR ---
EXAMINATION TYPE: XR chest 1V DATE OF EXAM: 12/14/2016 COMPARISON: 12/13/2016 HISTORY: 66-year-old female pleural effusion and shortness of breath TECHNIQUE: Single frontal view of the chest is obtained. FINDINGS: Heart is normal size. Interstitial densities improved as compared to prior exam. Patchy bibasilar opa cities persist with a small effusions. IMPRESSION: Correlate for improving CHF. The pulmonary vasculature now appears relatively normal. Small effusions with bibasilar atelectasis and/or consolidation remain.
--- NOTE | 2016-12-14 10:38 | P.DS ---
Providers Date of admission: 12/11/16 17:03 66-year-old pleasant female admitted secondary to sepsis from urinary tract infection patient is found to be bacteremic with gram-negative bacilli. Patient does have nephrolithiasis multiple small nonobstructing renal calculi. We will repeat blood cultures today tomorrow to document clearance. Patient will be continued on Rocephin. 12/13/2016 No overnight events. 12/14/2016 No significant overnight events. Patient was comparing of chills but didn't have any fever. Patient was bacteremic. Patient's blood cultures from from day before will be 48 hours today if they continue to be negative patient will be discharged with 11 more days of levofloxacin patient has Klebsiella pneumoniae in the urine which is pansensitive. Patient did pass a few stones today. Patient will follow with urology as an outpatient. PHYSICAL EXAMINATION: GENERAL: The patient is alert and oriented x3, not in any acute distress. Well developed, well nourished. HEENT: Pupils are round and equally reacting to light. EOMI. No scleral icterus. No conjunctival pallor. Normocephalic, atraumatic. No pharyngeal erythema. No thyromegaly. CARDIOVASCULAR: S1 and S2 present. No murmurs, rubs, or gallops. PULMONARY: Chest is clear to auscultation, no wheezing or crackles. ABDOMEN: Soft, nontender, nondistended, normoactive bowel sounds. No palpable organomegaly. MUSCULOSKELETAL: No joint swelling or deformity. EXTREMITIES: No cyanosis, clubbing, or pedal edema. NEUROLOGICAL: Gross neurological examination did not reveal any focal deficits. SKIN: No rashes. 1 sepsis: Bacteremia Secondary to urinary tract infection and nephrolithiasis. #2 hypovolemic hyponatremia: Expected to improve with IV fluids. #3 nonobstructive nephrolithiasis: Expected to improve with IV fluids and patient really to follow with urology as an outpatient. #4 leukocytosis due to assessment #1 Attending physician: Jose Clark Primary care physician: Vinny Calles Patient Condition at Discharge: Stable Plan - Discharge Summary New Discharge Prescriptions: New Levofloxacin [Levaquin] 500 mg PO DAILY #11 tab HYDROcodone/APAP 7.5-325MG [[place] 7.5-325] 1 tab PO Q4H PRN #20 tab PRN Reason: Pain No Action Cholecalciferol [Vitamin D3] 1,000 unit PO DAILY Ubidecarenone [Co Q-10] 100 mg PO DAILY Turmeric Root Extract [Turmeric] 500 mg PO DAILY Potassium 99 mg PO DAILY Magnesium 200 mg PO DAILY Calcium Carbonate/Vitamin D3 [Calcium 500-Vit D3 600 Tablet] 1 tab PO DAILY Multivitamins, Thera [Multivitamin (formulary)] 1 tab PO DAILY Aspirin EC [Ecotrin Low Dose] 81 mg PO DAILY Vitamin K2 & Vitamin D3 1 tab PO DAILY Seven Red Krill Oil 1 tab PO DAILY L.acidoph,Paracasei, B.lactis [Probiotic] 1 cap PO DAILY Cranberry And Vitamin C 1 tab PO DAILY Aloe Vera Juice 1.5 oz PO Q48H Discharge Medication List Aloe Vera Juice 1.5 oz PO Q48H 12/11/16 [History] Aspirin EC [Ecotrin Low Dose] 81 mg PO DAILY 12/11/16 [History] Calcium Carbonate/Vitamin D3 [Calcium 500-Vit D3 600 Tablet] 1 tab PO DAILY 02/17 [History] Cholecalciferol [Vitamin D3] 1,000 unit PO DAILY 12/11/16 [History] Cranberry And Vitamin C 1 tab PO DAILY 12/11/16 [History] L.acidoph,Paracasei, B.lactis [Probiotic] 1 cap PO DAILY 12/11/16 [History] Magnesium 200 mg PO DAILY 12/11/16 [History] Seven Red Krill Oil 1 tab PO DAILY 12/11/16 [History] Multivitamins, Thera [Multivitamin (formulary)] 1 tab PO DAILY 12/11/16 [History ] Potassium 99 mg PO DAILY 12/11/16 [History] Turmeric Root Extract [Turmeric] 500 mg PO DAILY 12/11/16 [History] Ubidecarenone [Co Q-10] 100 mg PO DAILY 12/11/16 [History] Vitamin K2 & Vitamin D3 1 tab PO DAILY 12/11/16 [History] HYDROcodone/APAP 7.5-325MG [[place] 7.5-325] 1 tab PO Q4H PRN #20 tab 12/14/16 [Rx ] Levofloxacin [Levaquin] 500 mg PO DAILY #11 tab 12/14/16 [Rx] Follow up Appointment(s)/Referral(s): Timo Bryant MD [STAFF PHYSICIAN] - 1 Week Vinny Calles MD [Primary Care Provider] - 3 Days Discharge Disposition: HOME SELF-CARE
== END 2016-12-14 11:50 | disposition home or self-care (01) | DRG 872 ==
LOC: EC 13:08 → 5MS5E 17:03
PROVIDERS: ADMIT Internal Medicine; ATTEND Internal Medicine
DX: A41.9 Sepsis, unspecified organism (principal); E87.1 Hypo-osmolality and hyponatremia; N39.0 Urinary tract infection, site not specified; N20.0 Calculus of kidney; Z79.82 Long term (current) use of aspirin; Z79.899 Other long term (current) drug therapy; Z87.442 Personal history of urinary calculi
CPT/HCPCS: 36415; 71010; 71020; 74176; 80048; 80053; 81001; 82150; 83605; 83690; 85025; 85027; 87040; 87077; 87186

== ENCOUNTER → 2016-12-23 | Outpatient (CLI) | payer MEDICARE ==
--- NOTE | 2016-12-25 11:38 | MM ---
Reason for exam: screening (asymptomatic). Last mammogram was performed 1 year and 11 months ago. History: Patient is postmenopausal. Family history of breast cancer in paternal cousin. Took estrogen for 1 year 8 months. Physical Findings: A clinical breast exam by your physician is recommended on an annual basis and results should be correlated with mammographic findings. MG Screening Mammo w CAD Bilateral CC and MLO view(s) were taken. Prior study comparison: January 25, 2015, right breast MG work up mamm w CAD RT. January 11, 2015, bilateral MG screening mammo w CAD. The breast tissue is heterogeneously dense. This may lower the sensitivity of mammography. No suspicious abnormality. ASSESSMENT: Negative, BI-RAD 1 RECOMMENDATION: Routine screening mammogram of both breasts in 1 year.
== END | disposition home or self-care (01) ==
LOC: RADMAMWWP 14:23
PROVIDERS: ATTEND Obstetrics & Gynecology
DX: Z12.31 Encounter for screening mammogram for malignant neoplasm of breast (principal)

== ENCOUNTER → 2018-02-01 | Outpatient (CLI) | payer MEDICARE ==
--- NOTE | 2018-02-03 11:28 | MM ---
Reason for exam: screening (asymptomatic). Last mammogram was performed 1 year and 1 month ago. History: Patient is postmenopausal. Family history of breast cancer in paternal cousin. Took estrogen for 1 year 8 months. Physical Findings: A clinical breast exam by your physician is recommended on an annual basis and results should be correlated with mammographic findings. MG Screening Mammo w CAD Bilateral CC and MLO view(s) were taken. Prior study comparison: December 23, 2016, bilateral MG screening mammo w CAD. January 25, 2015, right breast MG work up mamm w CAD RT. The breast tissue is heterogeneously dense. This may lower the sensitivity of mammography. There is chronic nodularity in the right breast. No significant changes when compared with prior studies. ASSESSMENT: Negative, BI-RAD 1 RECOMMENDATION: Routine screening mammogram of both breasts in 1 year.
== END | disposition home or self-care (01) ==
LOC: RADMAMWWP 16:38
PROVIDERS: ATTEND Obstetrics & Gynecology
DX: Z12.31 Encounter for screening mammogram for malignant neoplasm of breast (principal)
CPT/HCPCS: 77067

== ENCOUNTER → 2019-02-07 | Outpatient (CLI) | payer MEDICARE ==
--- NOTE | 2019-02-08 10:29 | MM ---
Reason for exam: screening (asymptomatic). Last mammogram was performed 1 year ago. History: Patient is postmenopausal. Family history of breast cancer in paternal cousin. Took estrogen for 1 year 8 months. Physical Findings: A clinical breast exam by your physician is recommended on an annual basis and results should be correlated with mammographic findings. MG Screening Mammo w CAD Bilateral CC and MLO view(s) were taken. Prior study comparison: February 01, 2018, bilateral MG screening mammo w CAD. December 23, 2016, bilateral MG screening mammo w CAD. The breast tissue is heterogeneously dense. This may lower the sensitivity of mammography. There is a stable bilobed right central outer middle depth mass, likely intramammary lymph node. Benign appearing bilateral calcifications. No suspicious abnormality. No significant changes when compared with prior studies. ASSESSMENT: Benign, BI-RAD 2 RECOMMENDATION: Routine screening mammogram of both breasts in 1 year.
== END | disposition home or self-care (01) ==
LOC: RADMAMWWP 12:48
PROVIDERS: ATTEND Obstetrics & Gynecology
DX: Z12.31 Encounter for screening mammogram for malignant neoplasm of breast (principal)
CPT/HCPCS: 77067

== ENCOUNTER → 2019-03-08 | Outpatient (CLI) | payer MEDICARE ==
--- NOTE | 2019-03-08 13:56 | XR ---
EXAMINATION TYPE: XR abdomen 1V DATE OF EXAM: 03/08/2019 1:45 PM CLINICAL HISTORY: Renal stone. TECHNIQUE: Single supine KUB image of the abdomen is. COMPARISON: CT abdomen and pelvis December 11, 2016. FINDINGS: Innumerable small calculi scattered throughout the left kidney. Suspect at least 40 individ ual calculi all measuring 3 mm or smaller in size. Less well-visualized small right renal calculi whi ch are presumed less numerous. More prominent overlying fecal material noted. Visualized osseous stru ctures are intact. IMPRESSION: Innumerable small left renal calculi redemonstrated.
== END | disposition home or self-care (01) ==
LOC: RADXRMAIN 13:15
PROVIDERS: ATTEND Urology
DX: N20.0 Calculus of kidney (principal)
CPT/HCPCS: 74018

== ENCOUNTER 2019-03-14 09:53 | Observation (INO) | payer MEDICARE ==
[2019-03-14] MEDS ORDERED: ONDANSETRON ODT 8 MG TAB.RAPDIS PO STA (10:17)
[2019-03-14] MEDS ORDERED: HYDROmorphone 0.5 MG/0.5 ML SYRINGE IVP STA ×2 (10:17→12:22)
[2019-03-14] MEDS ORDERED: SODIUM CHLORIDE 0.9% 1,000 ML IV STA (10:17)
--- NOTE | 2019-03-14 10:21 | ED ---
General Adult HPI - General Chief complaint: Abdominal Pain Stated complaint: rt sided back pain Time Seen by Provider: 03/14/19 10:06 Source: patient, RN notes reviewed Mode of arrival: ambulatory Limitations: no limitations - History of Present Illness Initial comments: 68-year-old female presents to the emergency department for a chief complaint of right flank pain. Patient states this has been ongoing for 1 month but worsening today. Patient states she has a strong history of kidney stone s and has passed several kidney stones in the past. Patient states that she saw Dr. Bryant her urologist last week and had an x-ray of the abdomen obtained which showed innumerable left renal calculi. Patient was given Toradol at home for pain which she last had about 2 hours prior to arrival. However pain has continued. Patient states Dr. Carpenter recommended she come to the emergency department for a CAT scan as well as pain medication. Patient noted to be hypertensive upon arrival. She states that she is normally hypertensive and she is at a doctor's office or nervous but her blood pressure on was 134/80 when she checked it.Patient has no other complaints at this time including shortness of breath, chest pain, abdominal pain, nausea or vomiting, headache, or visual changes. - Related Data Home Medications Medication Instructions Recorded Confirmed Aloe Vera Juice 1.5 oz PO DAILY 12/11/16 03/14/19 Cholecalciferol [Vitamin D3] 1,000 unit PO DAILY 12/11/16 03/14/19 Cranberry And Vitamin C 1 tab PO DAILY 12/11/16 03/14/19 Seven Red Krill Oil 1 tab PO DAILY 12/11/16 03/14/19 Potassium 99 mg PO DAILY 12/11/16 03/14/19 Ubidecarenone [Co Q-10] 100 mg PO DAILY 12/11/16 03/14/19 Vitamin K2 & Vitamin D3 1 tab PO DAILY 12/11/16 03/14/19 B 50 Complex 1 tab PO DAILY 03/14/19 03/14/19 HYDROcodone/APAP 5-325MG [[place] 1 tab PO Q4H PRN 03/14/19 03/14/19 5-325] Magnesium Oxide [Mag-Ox] 250 mg PO DAILY 03/14/19 03/14/19 Multivit-Min/Iron/Folic/Lutein 1 tab PO DAILY 03/14/19 03/14/19 [Centrum Silver Women Tablet] Nitrofurantoin Monohyd/M-Cryst 100 mg PO BID 03/14/19 03/14/19 [Macrobid] Turmeric/Curcumin 1 tab PO DAILY 03/14/19 03/14/19 Allergies Allergy/AdvReac Type Severity Reaction Status Date / Time No Known Allergies Allergy Verified 03/14/19 11:35 Review of Systems ROS Statement: Those systems with pertinent positive or pertinent negative responses have been documented in the HPI. ROS Other: All systems not noted in ROS Statement are negative. 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", SEASONAL ALLERGIES, KIDNEY STONES 7 TIMES History of Any Multi-Drug Resistant Organisms: None Reported Past Surgical History: Tonsillectomy Additional Past Surgical History / Comment(s): DEVIATED SEPTUM SX, SATNAM BUNIONECTOMY,SX ON SATNAM BABY TOES Past Anesthesia/Blood Transfusion Reactions: No Reported Reaction Past Psychological History: No Psychological Hx Reported Smoking Status: Never smoker Past Alcohol Use History: None Reported Past Drug Use History: None Reported - Past Family History Father Family Medical History: Cancer Additional Family Medical History / Comment(s): AT AGE 56 FROM COLON CANCER Mother Family Medical History: Cancer Additional Family Medical History / Comment(s): AGE 88 FROM A RARE SARCOMA RT UPPER ARM MSUCLE Sister(s) Additional Family Medical History / Comment(s): PT HAS 3 SISTERS. #1 W/ MS, #2 DDD AND COLITIS, #3 DDD General Exam Limitations: no limitations General appearance: alert, in no apparent distress Head exam: Present: atraumatic, normocephalic, normal inspection Eye exam: Present: normal appearance, PERRL, EOMI. Absent: scleral icterus, conjunctival injection, periorbital swelling ENT exam: Present: normal exam Neck exam: Present: normal inspection, full ROM. Absent: tenderness, meningismus, lymphadenopathy Respiratory exam: Present: normal lung sounds bilaterally. Absent: respiratory distress, wheezes, rales, rhonchi, stridor Cardiovascular Exam: Present: regular rate, normal rhythm, normal heart sounds. Absent: systolic murmur, diastolic murmur, rubs, gallop, clicks GI/Abdominal exam: Present: soft, normal bowel sounds. Absent: distended, tenderness, guarding, rebound, rigid Extremities exam: Present: other (Upper and lower extremities are warm bilaterally. Radial pulses are equal bilaterally, DP pulses are equal bila terally) Back exam: Absent: CVA tenderness (R), CVA tenderness (L) Neurological exam: Present: alert Course Vital Signs 03/14/19 03/14/19 03/14/19 09:54 10:59 12:03 Temperature 98.1 F Pulse Rate 85 95 Respiratory 18 20 Rate Blood Pressure 202/109 197/100 194/94 O2 Sat by Pulse 100 99 Oximetry 03/14/19 12:19 Temperature Pulse Rate Respiratory Rate Blood Pressure 188/82 O2 Sat by Pulse Oximetry Medical Decision Making - Medical Decision Making CBC is unremarkable. CMP shows mild dehydration, patient was given fluids. Urinalysis does not show any significant evidence of infection but will be cultured. Patient is currently taking Macrobid. CT abdomen and pelvis showed bilateral nephrolithiasis without evidence for obstructing cactus. Patient was given Dilaudid which did improve her pain. She was also given hydralazine as she was hypertensive upon arrival. However upon reevaluation pain has increased and worsened causing dizziness. She was given additional dose of pain medicat ion and hydralazine. Patient does not have any signs of muscular skeletal back pain. At this time given intractable pain patient will be admitted Dr. Núñez discussed this case with Dr. Anderson as well as Dr. Bryant Both agreed to see patient in the hospital. - Lab Data Result diagrams: 03/14/19 10:50 03/14/19 10:50 Lab Results 03/14/19 03/14/19 03/14/19 Range/Units 10:50 10:50 11:20 WBC 4.4 (3.8-10.6) k/uL RBC 5.05 (3.80-5.40) m/uL Hgb 15.3 (11.4-16.0) gm/dL Hct 46.7 H (34.0-46.0) % MCV 92.4 (80.0-100.0) fL MCH 30.4 (25.0-35.0) pg MCHC 32.9 (31.0-37.0) g/dL RDW 13.4 (11.5-15.5) % Plt Count 235 (150-450) k/uL Neutrophils % 73 % Lymphocytes % 16 % Monocytes % 7 % Eosinophils % 2 % Basophils % 1 % Neutrophils # 3.2 (1.3-7.7) k/uL Lymphocytes # 0.7 L (1.0-4.8) k/uL Monocytes # 0.3 (0-1.0) k/uL Eosinophils # 0.1 (0-0.7) k/uL Basophils # 0.1 (0-0.2) k/uL Sodium 142 (137-145) mmol/L Potassium 3.9 (3.5-5.1) mmol/L Chloride 106 (98-107) mmol/L Carbon Dioxide 23 (22-30) mmol/L Anion Gap 13 mmol/L BUN 19 H (7-17) mg/dL Creatinine 0.69 (0.52-1.04) mg/dL Est GFR (CKD-EPI)AfAm >90 (>60 ml/min/1.73 sqM) Est GFR (CKD-EPI)NonAf >90 (>60 ml/min/1.73 sqM) Glucose 103 H (74-99) mg/dL Calcium 10.6 H (8.4-10.2) mg/dL Total Bilirubin 1.1 (0.2-1.3) mg/dL AST 33 (14-36) U/L ALT 32 (9-52) U/L Alkaline Phosphatase 87 (38-126) U/L Total Protein 7.7 (6.3-8.2) g/dL Albumin 4.5 (3.5-5.0) g/dL Amylase 68 (30-110) U/L Lipase 215 (23-300) U/L Urine Color Dark Yellow Urine Appearance Cloudy H (Clear) Urine pH 8.0 (5.0-8.0) Ur Specific [place] 1.012 (1.001-1.035) Urine Protein Trace H (Negative) Urine Glucose (UA) Negative (Negative) Urine Ketones Negative (Negative) Urine Blood Negative (Negative) Urine Nitrite Negative (Negative) Urine Bilirubin Negative (Negative) Urine Urobilinogen <2.0 (<2.0) mg/dL Ur Leukocyte Esterase Moderate H (Negative) Urine RBC 3 (0-5) /hpf Urine WBC 10 H (0-5) /hpf Ur Squamous Epith Cells 1 (0-4) /hpf Hyaline Casts 3 H (0-2) /lpf Urine Mucus Rare H (None) /hpf Disposition Clinical Impression: Intractable pain, Flank pain, Nephrolithiasis Disposition: ADMITTED IP TO THIS HOSP Condition: Fair Is patient prescribed a controlled substance at d/c from ED?: No Referrals: Vinny Calles MD [Primary Care Provider] - 1-2 days Time of Disposition: 13:01
[2019-03-14] MEDS ORDERED: hydrALAZINE HCL 20 MG/ML 1 ML VIAL IVP STA ×2 (11:04→12:22)
[2019-03-14 11:05] LABS: Basophils # (A) 0.1 k/uL (0-0.2); Basophils % (A) 1 %; Eosinophils # (A) 0.1 k/uL (0-0.7); Eosinophils % (A) 2 %; HCT 46.7 % (34.0-46.0); HGB 15.3 gm/dL (11.4-16.0); Lymphocytes # (A) 0.7 k/uL (1.0-4.8); Lymphocytes % (A) 16 %; MCH 30.4 pg (25.0-35.0); MCHC 32.9 g/dL (31.0-37.0); MCV 92.4 fL (80.0-100.0); Mean Platelet Volume 6.7; Monocytes # (A) 0.3 k/uL (0-1.0); Monocytes % (A) 7 %; Neutrophils # (A) 3.2 k/uL (1.3-7.7); Neutrophils % (A) 73 %; Platelet Count 235 k/uL (150-450); RBC 5.05 m/uL (3.80-5.40); RDW 13.4 % (11.5-15.5); WBC 4.4 k/uL (3.8-10.6)
[2019-03-14 11:17] LABS: ALT 32 U/L (9-52); AST 33 U/L (14-36); African American GFR (CKD) >90 (>60 ml/min/1.73 sqM); Albumin 4.5 g/dL (3.5-5.0); Alkaline Phosphatase 87 U/L (38-126); Amylase 68 U/L (30-110); Anion Gap 13 mmol/L; Blood Urea Nitrogen 19 mg/dL (7-17); Calcium 10.6 mg/dL (8.4-10.2); Carbon Dioxide 23 mmol/L (22-30); Chloride 106 mmol/L (98-107); Glucose 103 mg/dL (74-99); Non-African American GFR(CKD) >90 (>60 ml/min/1.73 sqM); Potassium 3.9 mmol/L (3.5-5.1); Sodium 142 mmol/L (137-145); Total Bilirubin 1.1 mg/dL (0.2-1.3); Total Protein 7.7 g/dL (6.3-8.2)
--- NOTE | 2019-03-14 11:21 | CT ---
EXAMINATION TYPE: CT abdomen pelvis wo con DATE OF EXAM: 03/14/2019 COMPARISON: December 11, 2016 HISTORY: Rt sided back pain CT DLP: 463.4 mGycm Examination of the solid and hollow viscera is limited given the lack of contrast. FINDINGS: LUNG BASES: No evidence for nodule. No evidence for infiltrate. LIVER/GB: The gallbladder is unremarkable. No space-occupying hepatic lesion. PANCREAS: No pancreatic mass identified. No inflammatory process seen. SPLEEN: No evidence for splenomegaly. No intrasplenic lesions seen. ADRENALS: No adrenal nodules identified. No evidence for thickening. KIDNEYS: There is bilateral nephrolithiasis noted with numerous calculi seen bilaterally measuring up to 4 mm. I do not however see evidence for obstructing calculus at this time. BOWEL: Appendix has a normal appearance. No evidence of bowel obstruction. No inflammatory process. Lymph nodes: No evidence for adenopathy greater than 1 cm. Abdominal aorta: Atheromatous changes seen. No evidence for aneurysm. Genital organs: No significant abnormality. Other: No significant abnormality. IMPRESSION: 1. Bilateral nephrolithiasis without evidence for obstructing calculus.
[2019-03-14 11:43] LABS: Appearance,Urine Cloudy (Clear); Bilirubin,Urine Negative (Negative); Blood,Urine Negative (Negative); Color,Urine Dark Yellow; Glucose,Urine (UA) Negative (Negative); Hyaline Casts,Urine 3 /lpf (0-2); Ketones,Urine Negative (Negative); Leukocyte Esterase,Urine Moderate (Negative); Mucus,Urine Rare /hpf; Nitrite,Urine Negative (Negative); Protein,Urine Trace (Negative); RBC,Urine 3 /hpf (0-5); Specific Gravity,Urine 1.012 (1.001-1.035); Squamous Epithelial Cell,Urine 1 /hpf (0-4); Urobilinogen,Urine <2.0 mg/dL (<2.0); WBC,Urine 10 /hpf (0-5)
[2019-03-14] MEDS ORDERED: diphenhydrAMINE 50 MG/ML 1 ML VIAL IVP STA (12:22)
[2019-03-14] MEDS ORDERED: NALOXONE 0.4 MG/ML 1 ML VIAL IV PRN (12:45)
[2019-03-14] MEDS ORDERED: HYDROmorphone 0.5 MG/0.5 ML SYRINGE IVP PRN (12:45)
[2019-03-14] MEDS: SODIUM CHLORIDE 0.9% 1,000 ML IV SCH (12:52)
[2019-03-14 14:23] VITALS: BMI 23.1
[2019-03-14] MEDS ORDERED: ceFAZolin 1 GM in SODIUM CHLORIDE 0.9% 100 ML IVPB SCH (16:00)
[2019-03-14 16:10] VITALS: RESP 18
[2019-03-14] MEDS: KETOROLAC 30 MG/ML 1 ML VIAL IVP PRN (17:40)
[2019-03-14] MEDS ORDERED: ONDANSETRON 4 MG/2 ML VIAL IVP PRN (17:48)
--- NOTE | 2019-03-14 17:57 | P.HPIM ---
History of Present Illness H&P Date: 03/14/19 Chief Complaint: Right-sided back pain 68-year-old female with PMH of nephrolithiasis and sciatica presents to the ED for worsening right-sided back pain. Patient reports right sided back pain that has been ongoing for the past month. Patient reports the pain to be right-sided with occasional radiation to the right hip and to the right groin. Patient reports the pain to be 8-10 out of 10 in severity. Patient reports the pain was initially intermittent but over the last week has become more constant. Patient reports the pain to be knifelike stabbing in nature. Pain is aggravated with movement and with bearing weight on the right side also with sitting on the righ t buttock. Patient reports being diagnosed with nephrolithiasis a couple years ago, calcium oxalate stones. Patient also reports that she passed a kidney stone couple of weeks ago. She was seen by Dr. Bryant on where KUB was ordered and she was given painkillers along with nitrofurantoin for a urinary tract infection. Patient denies any headaches, lower extremity edema, vomiting, fever, cough, chest pain, shortness of breath, palpitations or changes in urination or bowel habits. No changes in appetite or weight. Patient denies any dizziness, numbness/weakness/tingling of the extremities. She does report intense nausea that started once she got to the ED, possibly related to narcotic pain medication that she received. In the ED, patient was noted to have elevated BP of 202/109. CBC was unremarkable. CMP showed BUN 19, glucose 103, calcium 10.6. Urinalysis showed moderate leukocyte esterase and 10 WBCs. Patient is admitted for UTI, intractable pain due to nephrolithiasis with urology on consultation. Review of Systems Pertinent positives and negatives as discussed in HPI, a complete review of systems was performed and all other systems are negative. All systems: negative Past Medical History Past Medical History: Mitral Valve Prolapse (MVP), Renal Disease Additional Past Medical History / Comment(s): Pt has had R sided back pain with BMs, nephrolithiasis/pt has passed kidney stones on her own, UTIs, UTI with sepsis, MVP, curvature lower spine, seasonal allergies. History of Any Multi-Drug Resistant Organisms: None Reported Past Surgical History: Orthopedic Surgery, Tonsillectomy Additional Past Surgical History / Comment(s): colonoscopies with benign polypectomy, deviated septum, bilateral feet bunionectomies/5th toe surgery to correct bones, vaginal polyps-benign removed. Past Anesthesia/Blood Transfusion Reactions: No Reported Reaction Past Psychological History: No Psychological Hx Reported Additional Psychological History / Comment(s): Pt resides alone in a condo. She drives. Smoking Status: Never smoker Past Alcohol Use History: Occasional Past Drug Use History: None Reported - Past Family History Father Family Medical History: Cancer Additional Family Medical History / Comment(s): AT AGE 56 FROM COLON CANCER Mother Family Medical History: Cancer Additional Family Medical History / Comment(s): AGE 88 FROM A RARE SARCOMA RT UPPER ARM MSUCLE Sister(s) Additional Family Medical History / Comment(s): PT HAS 3 SISTERS. #1 W/ MS, #2 DDD AND COLITIS, #3 DDD Medications and Allergies Home Medications Medication Instructions Recorded Confirmed Type Aloe Vera Juice 1.5 oz PO DAILY 12/11/16 03/14/19 History Cholecalciferol [Vitamin D3] 1,000 unit PO DAILY 12/11/16 03/14/19 History Cranberry And Vitamin C 1 tab PO DAILY 12/11/16 03/14/19 History Seven Red Krill Oil 1 tab PO DAILY 12/11/16 03/14/19 History Potassium 99 mg PO DAILY 12/11/16 03/14/19 History Ubidecarenone [Co Q-10] 100 mg PO DAILY 12/11/16 03/14/19 History Vitamin K2 & Vitamin D3 1 tab PO DAILY 12/11/16 03/14/19 History B 50 Complex 1 tab PO DAILY 03/14/19 03/14/19 History HYDROcodone/APAP 5-325MG [[place] 1 tab PO Q4H PRN 03/14/19 03/14/19 History 5-325] Magnesium Oxide [Mag-Ox] 250 mg PO DAILY 03/14/19 03/14/19 History Multivit-Min/Iron/Folic/Lutein 1 tab PO DAILY 03/14/19 03/14/19 History [Centrum Silver Women Tablet] Nitrofurantoin Monohyd/M-Cryst 100 mg PO BID 03/14/19 03/14/19 History [Macrobid] Turmeric/Curcumin 1 tab PO DAILY 03/14/19 03/14/19 History Allergies Allergy/AdvReac Type Severity Reaction Status Date / Time No Known Allergies Allergy Verified 03/14/19 11:35 Physical Exam Vitals: Vital Signs Temp Pulse Pulse Resp BP BP Pulse Ox 03/14/19 15:24 98.1 F 101 H 18 171/77 98 03/14/19 13:30 172/84 03/14/19 12:19 188/82 03/14/19 12:03 95 194/94 99 03/14/19 10:59 20 197/100 03/14/19 09:54 98.1 F 85 18 202/109 100 Intake and Output 03/14/19 03/14/19 03/14/19 06:59 14:59 22:59 Other: Voiding Method Bedside Commode Weight 65.181 kg General: [non toxic], [no distress], [appears at stated age] Derm: [warm], [dry] Head: [atraumatic], [normocephalic], [symmetric] Eyes: [EOMI], [no lid lag], [anicteric sclera] Mouth: [no lip lesion], [mucus membranes moist] Cardiovascular: [S1S2 reg], [no murmur], [positive DP pulse bilateral], Lungs: [CTA bilateral], [no rhonchi, no rales] , [no accessory muscle use] Abdominal: [soft], [ nontender to palpation], [no guarding], [no appreciable organomegaly] Ext: [no gross muscle atrophy], [no edema], [no contractures], [full range of motion of the hips and knees bilaterally negative SLR] Neuro: [ CN II-XI grossly intact], [no focal neuro deficits] Psych: [Alert], [oriented], [appropriate affect] Results CBC & Chem 7: 03/14/19 10:50 03/14/19 10:50 Labs: Abnormal Lab Results - Last 24 Hours (Table) 03/14/19 03/14/19 03/14/19 Range/Units 10:50 10:50 11:20 Hct 46.7 H (34.0-46.0) % Lymphocytes # 0.7 L (1.0-4.8) k/uL BUN 19 H (7-17) mg/dL Glucose 103 H (74-99) mg/dL Calcium 10.6 H (8.4-10.2) mg/dL Urine Appearance Cloudy H (Clear) Urine Protein Trace H (Negative) Ur Leukocyte Esterase Moderate H (Negative) Urine WBC 10 H (0-5) /hpf Hyaline Casts 3 H (0-2) /lpf Urine Mucus Rare H (None) /hpf Microbiology - Last 24 Hours (Table) 03/14/19 11:20 Urine Culture - Preliminary Urine,Voided Thrombosis Risk Factor Assmnt - Choose All That Apply Any of the Below Risk Factors Present?: Yes Other Risk Factors: Yes Each Risk Factor Represents 2 Points: Age 61-74 years Other congenital or acquired thrombophilia - If yes, enter type in comment: No Thrombosis Risk Factor Assessment Total Risk Factor Score: 2 Thrombosis Risk Factor Assessment Level: Low Risk Assessment and Plan Assessment: Assessment and plan Hypertensive urgency Acute right-sided back pain Nonobstructing nephrolithiasis with UTI BP initially 202/109. Given hydralazine IV in ED. Plans: BP currently 171/77, and acceptable. Patient needs better pain control. Monitor vitals, adjust medications as necessary. CT abdomen and pelvis shows nonobstructing nephrolithiasis. Pain out of proportion on physical exam. SLR negative. Full range of motion of the joints. She does have a history of sciatica. Plans: Consult orthopedic surgery for possible recommendations. Pain control with [place], Toradol as needed. Follow PT recommendations. As seen on CT AP. UA showing moderate leukocyte esterase. Recent urine culture positive E. coli pansensitive. Plans: Continue cefazolin IV. Follow urine culture. Pain control as above. Zofran as needed for nausea or vomiting. Follow urology recommendations. DVT prophylaxis: [SCD] Discussed with: [Patient and daughter] Anticipated discharge: [1 day] Anticipated discharge place: [Home] A total of [45] minutes was spent on the care of this complex patient more than 50% of the time was spent in counseling and care coordination. Patient names her daughter Maddy decision-maker in the case that she can make decisions for herself. Patient reiterates wanting to remain full code.
--- NOTE | 2019-03-14 18:20 | P.GSCN ---
History of Present Illness Consult date: 03/14/19 Reason for Consult: Right flank pain Requesting physician: Avel Polanco History of present illness: The patient is a 68-year-old white female with a history of medullary sponge kidney and recurrent urolithiasis. She was seen in the office 03/10/2019 with right lower back pain, which was severe at times. She recently passed a stone. She reports pain with prolonged sitting, as well as with certain motions. She identifies the right posterior hip as the primary location of the pain, and states that it radiates into the groin and lower extremity. She was placed on Macrobid at the time of her visit, and a urine culture has indeed confirm the presence of a pansensitive E. coli UTI. However, her symptoms have failed to improve. A computed tomography scan shows several tiny right renal calculi, none exceeding 2 mm in size. No ureteral calculi are seen, and there is no evidence of hydronephrosis. Review of Systems - Constitutional Denies chills, Denies fever - Gastrointestinal Reports nausea, Denies vomiting - Genitourinary Genitourinary: Denies hematuria Past Medical History Past Medical History: Mitral Valve Prolapse (MVP), Renal Disease Additional Past Medical History / Comment(s): Pt has had R sided back pain with BMs, nephrolithiasis/pt has passed kidney stones on her own, UTIs, UTI with sepsis, MVP, curvature lower spine, seasonal allergies. History of Any Multi-Drug Resistant Organisms: None Reported Past Surgical History: Orthopedic Surgery, Tonsillectomy Additional Past Surgical History / Comment(s): colonoscopies with benign polypectomy, deviated septum, bilateral feet bunionectomies/5th toe surgery to correct bones, vaginal polyps-benign removed. Past Anesthesia/Blood Transfusion Reactions: No Reported Reaction Past Psychological History: No Psychological Hx Reported Additional Psychological History / Comment(s): Pt resides alone in a condo. She drives. Smoking Status: Never smoker Past Alcohol Use History: Occasional Past Drug Use History: None Reported - Past Family History Father Family Medical History: Cancer Additional Family Medical History / Comment(s): AT AGE 56 FROM COLON CANCER Mother Family Medical History: Cancer Additional Family Medical History / Comment(s): AGE 88 FROM A RARE SARCOMA RT UPPER ARM MSUCLE Sister(s) Additional Family Medical History / Comment(s): PT HAS 3 SISTERS. #1 W/ MS, #2 DDD AND COLITIS, #3 DDD Medications and Allergies Home Medications Medication Instructions Recorded Confirmed Type Aloe Vera Juice 1.5 oz PO DAILY 12/11/16 03/14/19 History Cholecalciferol [Vitamin D3] 1,000 unit PO DAILY 12/11/16 03/14/19 History Cranberry And Vitamin C 1 tab PO DAILY 12/11/16 03/14/19 History Seven Red Krill Oil 1 tab PO DAILY 12/11/16 03/14/19 History Potassium 99 mg PO DAILY 12/11/16 03/14/19 History Ubidecarenone [Co Q-10] 100 mg PO DAILY 12/11/16 03/14/19 History Vitamin K2 & Vitamin D3 1 tab PO DAILY 12/11/16 03/14/19 History B 50 Complex 1 tab PO DAILY 03/14/19 03/14/19 History HYDROcodone/APAP 5-325MG [[place] 1 tab PO Q4H PRN 03/14/19 03/14/19 History 5-325] Magnesium Oxide [Mag-Ox] 250 mg PO DAILY 03/14/19 03/14/19 History Multivit-Min/Iron/Folic/Lutein 1 tab PO DAILY 03/14/19 03/14/19 History [Centrum Silver Women Tablet] Nitrofurantoin Monohyd/M-Cryst 100 mg PO BID 03/14/19 03/14/19 History [Macrobid] Turmeric/Curcumin 1 tab PO DAILY 03/14/19 03/14/19 History Allergies Allergy/AdvReac Type Severity Reaction Status Date / Time No Known Allergies Allergy Verified 03/14/19 11:35 Surgical - Exam Vital Signs Temp Pulse Resp BP Pulse Ox 98.1 F 85 18 202/109 100 03/14/19 09:54 03/14/19 09:54 03/14/19 09:54 03/14/19 09:54 03/14/19 09:54 - General well developed, well nourished, no distress - Respiratory normal respiratory effort - Abdomen Abdomen: soft, non tender, no guarding, no rigid, no rebound - Psychiatric oriented to time, oriented to person, oriented to place, speech is normal, memory intact Results - Labs 03/14/19 10:50 03/14/19 10:50 Abnormal Lab Results - Last 24 Hours (Table) 03/14/19 03/14/19 03/14/19 Range/Units 10:50 10:50 11:20 Hct 46.7 H (34.0-46.0) % Lymphocytes # 0.7 L (1.0-4.8) k/uL BUN 19 H (7-17) mg/dL Glucose 103 H (74-99) mg/dL Calcium 10.6 H (8.4-10.2) mg/dL Urine Appearance Cloudy H (Clear) Urine Protein Trace H (Negative) Ur Leukocyte Esterase Moderate H (Negative) Urine WBC 10 H (0-5) /hpf Hyaline Casts 3 H (0-2) /lpf Urine Mucus Rare H (None) /hpf Microbiology - Last 24 Hours (Table) 03/14/19 11:20 Urine Culture - Preliminary Urine,Voided Diabetes panel 03/14/19 Range/Units 10:50 Sodium 142 (137-145) mmol/L Potassium 3.9 (3.5-5.1) mmol/L Chloride 106 (98-107) mmol/L Carbon Dioxide 23 (22-30) mmol/L BUN 19 H (7-17) mg/dL Creatinine 0.69 (0.52-1.04) mg/dL Glucose 103 H (74-99) mg/dL Calcium 10.6 H (8.4-10.2) mg/dL AST 33 (14-36) U/L ALT 32 (9-52) U/L Alkaline Phosphatase 87 (38-126) U/L Total Protein 7.7 (6.3-8.2) g/dL Albumin 4.5 (3.5-5.0) g/dL Calcium panel 03/14/19 Range/Units 10:50 Calcium 10.6 H (8.4-10.2) mg/dL Albumin 4.5 (3.5-5.0) g/dL Pituitary panel 03/14/19 Range/Units 10:50 Sodium 142 (137-145) mmol/L Potassium 3.9 (3.5-5.1) mmol/L Chloride 106 (98-107) mmol/L Carbon Dioxide 23 (22-30) mmol/L BUN 19 H (7-17) mg/dL Creatinine 0.69 (0.52-1.04) mg/dL Glucose 103 H (74-99) mg/dL Calcium 10.6 H (8.4-10.2) mg/dL Adrenal panel 03/14/19 Range/Units 10:50 Sodium 142 (137-145) mmol/L Potassium 3.9 (3.5-5.1) mmol/L Chloride 106 (98-107) mmol/L Carbon Dioxide 23 (22-30) mmol/L BUN 19 H (7-17) mg/dL Creatinine 0.69 (0.52-1.04) mg/dL Glucose 103 H (74-99) mg/dL Calcium 10.6 H (8.4-10.2) mg/dL Total Bilirubin 1.1 (0.2-1.3) mg/dL AST 33 (14-36) U/L ALT 32 (9-52) U/L Alkaline Phosphatase 87 (38-126) U/L Total Protein 7.7 (6.3-8.2) g/dL Albumin 4.5 (3.5-5.0) g/dL - Imaging CT scan - abdomen: report reviewed, image reviewed Assessment and Plan (1) Kidney stone Current Visit: Yes Status: Acute Code(s): N20.0 - CALCULUS OF KIDNEY SNOMED Code(s): 42925750 Plan: I explained to the patient that the severity of her pain would not be expected given the computed tomography scan findings. The fact that her pain is located over the right posterior hip and increases with certain movements suggests the possibility of a musculoskeletal origin of her symptoms. In view of this, orthopedic consultation has been requested. Ancef has been ordered for treatment of her UTI. She has been made nothing by mouth after midnight in case her status changes overnight, but I do not anticipate performing surgery during this hospitalization. Time with Patient: Greater than 30
[2019-03-14] MEDS: ACETAMINOPHEN TAB 325 MG TAB PO PRN (22:12)
[2019-03-14] MEDS: HYDROcodone/APAP 5-325MG 1 EACH TAB PO PRN (22:12)
[2019-03-15] MEDS: SODIUM CHLORIDE 0.9% 1,000 ML IV SCH (02:25)
[2019-03-15] MEDS: KETOROLAC 30 MG/ML 1 ML VIAL IVP PRN (06:13)
[2019-03-15] MEDS: ACETAMINOPHEN TAB 325 MG TAB PO PRN (06:14)
[2019-03-15 06:33] VITALS: BP 145/77; PULSE 68; TEMP 98.7
[2019-03-15] MEDS: HYDROcodone/APAP 5-325MG 1 EACH TAB PO PRN (08:47)
--- NOTE | 2019-03-15 09:12 | P.DS ---
Providers Date of admission: 03/14/19 14:10 Expected date of discharge: 03/15/19 Attending physician: Lashawn Laboy DO Consults: 03/14/19 12:45 Consult Physician Routine Consulting Provider: Timo Bryant Consult Reason/Comments: R flank pain, intractable Do you want consulting provider notified?: Yes 03/14/19 17:43 Consult Physician Routine Consulting Provider: Tiera Taveras Consult Reason/Comments: Lower back pain h/o sciatica Do you want consulting provider notified?: Yes Primary care physician: [facility] Course: 68-year-old female with PMH of nephrolithiasis and sciatica presents to the ED for worsening right-sided back pain. Patient reports right sided back pain that has been ongoing for the past month. Patient reports the pain to be right-sided with occasional radiation to the right hip and to the right groin. Patient reports the pain to be 8-10 out of 10 in severity. In the ED, patient was noted to have elevated BP of 202/109. CBC was unremarkable. CMP showed BUN 19, glucose 103, calcium 10.6. Urinalysis showed moderate leukocyte esterase and 10 WBCs. Patient is admitted for UTI, intractable pain due to nephrolithiasis with urology on consultation. CT of the abdomen and pelvis was performed which showed nonobstructing nephrolithiasis. Urinalysis showed moderate leukocyte esterase. Patient had a previous pansensitive urine culture that was collected by urology. She was started on Cefizox and urine cultures were collected during this admission. Urology evaluated the patient and recommended orthopedic consult as the pain was out of proportion to the CT findings. Patient was noted to have hypertensive urgency with a BP of 202/109 on admission. She was given hydralazine IV in the ED. Her blood pressures remained stable throughout her admission and was 145/77 on discharge with adequate pain control. Patient was seen and examined. No acute events overnight. Patient reports significant improvement in her right-sided back pain. Patient states that she passed a few stones this morning. She denies any dysuria or abdominal pain. No nausea or vomiting. No fever or chills. She denies any chest pain, shortness of breath or palpitations. She received 2 doses of IV Toradol 15 mg. She has also gotten 2 [place] 5 during her admission. General: [non toxic], [no distress], [appears at stated age] Derm: [warm], [dry] Head: [atraumatic], [normocephalic], [symmetric] Eyes: [EOMI], [no lid lag], [anicteric sclera] Mouth: [no lip lesion], [mucus membranes moist] Cardiovascular: [S1S2 reg], [no murmur], [positive DP pulse bilateral], Lungs: [CTA bilateral], [no rhonchi, no rales] , [no accessory muscle use] Abdominal: [soft], [ nontender to palpation], [no guarding], [no appreciable organomegaly] Ext: [no gross muscle atrophy], [no edema], [no contractures] Neuro: [no focal neuro deficits] Psych: [Alert], [oriented], [appropriate affect] Assessment and plan Elevated BP Acute right-sided back pain Nonobstructing nephrolithiasis with UTI BP initially 202/109. Given hydralazine IV in ED. Plans: BP currently 145/77, and acceptable. Patient needs better pain control. Monitor vitals, adjust medications as necessary. CT abdomen and pelvis shows nonobstructing nephrolithiasis. Pain out of proportion on physical exam. SLR negative. Full range of motion of the joints. She does have a history of sciatica. Plans: Consult orthopedic surgery for possible recommendations. Pain control with [place], Toradol as needed. Follow PT recommendations. As seen on CT AP. UA showing moderate leukocyte esterase. Recent urine culture positive E. coli pansensitive. Plans: Continue cefazolin IV. Follow urine culture. Pain control as above. Zofran as needed for nausea or vomiting. Follow urology recommendations. [Urology recommends conservative management and no surgical intervention. We'll transition her to oral antibiotics today. Pending orthopedic and PT evaluation. Likely DC today. Will need to follow-up urine culture with Dr. Bryant.] Pertinent Studies: CT abdomen and pelvis Patient Condition at Discharge: Stable Plan - Discharge Summary Discharge Rx Participant: No New Discharge Prescriptions: New Sulfamethox-Tmp 800-160Mg [Bactrim DS 800-160 mg] 1 tab PO Q12HR #12 tab HYDROcodone/APAP 5-325MG [[place] 5-325] 1 each PO Q4HR PRN #18 tab PRN Reason: Moderate Pain Continue HYDROcodone/APAP 5-325MG [[place] 5-325] 1 tab PO Q4H PRN PRN Reason: Pain Discontinued Cholecalciferol [Vitamin D3] 1,000 unit PO DAILY Ubidecarenone [Co Q-10] 100 mg PO DAILY Potassium 99 mg PO DAILY Vitamin K2 & Vitamin D3 1 tab PO DAILY Seven Red Krill Oil 1 tab PO DAILY Cranberry And Vitamin C 1 tab PO DAILY Aloe Vera Juice 1.5 oz PO DAILY Nitrofurantoin Monohyd/M-Cryst [Macrobid] 100 mg PO BID B 50 Complex 1 tab PO DAILY Turmeric/Curcumin 1 tab PO DAILY Magnesium Oxide [Mag-Ox] 250 mg PO DAILY Multivit-Min/Iron/Folic/Lutein [Centrum Silver Women Tablet] 1 tab PO DAILY Discharge Medication List HYDROcodone/APAP 5-325MG [[place] 5-325] 1 tab PO Q4H PRN 03/14/19 [History] HYDROcodone/APAP 5-325MG [[place] 5-325] 1 each PO Q4HR PRN #18 tab 03/15/19 [Rx] Sulfamethox-Tmp 800-160Mg [Bactrim DS 800-160 mg] 1 tab PO Q12HR #12 tab 03/15/19 [Rx] Follow up Appointment(s)/Referral(s): Vinny Calles MD [Primary Care Provider] - 1-2 days Timo Bryant MD [STAFF PHYSICIAN] - 1 Week Activity/Diet/Wound Care/Special Instructions: Diet: Low-salt Follow-up PCP within 3 days of discharge. Please continue to monitor your blood pressure on a daily basis. There is a chance to might need to be started on antihypertensive with your PCP. Please take all medications as advised. Follow-up with urology within 1 week. Discharge Disposition: HOME SELF-CARE
--- NOTE | 2019-03-15 13:10 | P.CNOR ---
History of Present Illness - [facility] Consult date: 03/15/19 Requesting physician: vAel Polanco Consult reason: back pain (Right-sided flank pain) History of present illness: Patient is a very pleasant 68-year-old female who is examined at bedside for further evaluation in regards to right lateral flank pain with some pain radiating over the right anterior hip and right groin. Patient states she has a significant history of kidney stones and has multiple kidney stones in the bilateral kidneys and is known have a sponge kidney. She states she frequently passes stones. She states over the past month she has been experiencing some increased right-sided flank pain with pain over the anterior hip and groin. She follows with Dr. Bryant in the outpatient setting. She felt her symptoms may be stemming from a stone. Her symptoms continue to worsen since 03/04/2019. She presented to the emergency department after her symptoms continue to be exacerbated and felt they were not controlled at home. At presentation to the emergency department, CT imaging of the abdomen and pelvis show evidence of calculi but did not show evidence of obstruction. We were then consulted for further evaluation. Patient does feel her pain has been better controlled since her admittance to the hospital. She states her pain tends to be exacerbated with certain positions including lumbar flexion. She has difficulty sleeping on her right side as that exacerbates her pain further. She denies any lower extremity weakness bilaterally. She denies any left lower extremity weakness. She states she has continued to perform regular activities of daily living without significant difficulty unless her symptoms are exacerbated. She states she did have an exacerbation of sciatica in December 2018 with pain radiating down the right lower extremity which improved with time, heat, and ice. She has not recently followed with any specific treatment for her lumbar spine. At this time she feels her pain is better controlled and feels she could be cleared for discharge home today with possible further workup to be done in the outpatient setting. She is planning to continue following with Dr. Bryant in the outpatient setting as well. Patient states she does have a history of frequent urinary tract infections as well and felt her symptoms may be stemming from possible urinary tract infection as she has been passing some sediment. She states after further evaluation with urology, they felt her symptoms may be stemming more from a orthopedic spine standpoint. She is currently on cefazolin for urinary tract infection. Past Medical History Past Medical History: Mitral Valve Prolapse (MVP), Renal Disease Additional Past Medical History / Comment(s): Pt has had R sided back pain with BMs, nephrolithiasis/pt has passed kidney stones on her own, UTIs, UTI with sepsis, MVP, curvature lower spine, seasonal allergies. History of Any Multi-Drug Resistant Organisms: None Reported Past Surgical History: Orthopedic Surgery, Tonsillectomy Additional Past Surgical History / Comment(s): colonoscopies with benign polypectomy, deviated septum, bilateral feet bunionectomies/5th toe surgery to correct bones, vaginal polyps-benign removed. Past Anesthesia/Blood Transfusion Reactions: No Reported Reaction Past Psychological History: No Psychological Hx Reported Additional Psychological History / Comment(s): Pt resides alone in a condo. She drives. Smoking Status: Never smoker Past Alcohol Use History: Occasional Past Drug Use History: None Reported - Past Family History Father Family Medical History: Cancer Additional Family Medical History / Comment(s): AT AGE 56 FROM COLON CANCER Mother Family Medical History: Cancer Additional Family Medical History / Comment(s): AGE 88 FROM A RARE SARCOMA RT UPPER ARM MSUCLE Sister(s) Additional Family Medical History / Comment(s): PT HAS 3 SISTERS. #1 W/ MS, #2 DDD AND COLITIS, #3 DDD Medications and Allergies Home Medications Medication Instructions Recorded Confirmed Type HYDROcodone/APAP 5-325MG [Yakima 1 tab PO Q4H PRN 03/14/19 03/14/19 History 5-325] HYDROcodone/APAP 5-325MG [Yakima 1 each PO Q4HR PRN #18 tab 03/15/19 Rx 5-325] Sulfamethox-Tmp 800-160Mg [Bactrim 1 tab PO Q12HR #12 tab 03/15/19 Rx DS 800-160 mg] Allergies Allergy/AdvReac Type Severity Reaction Status Date / Time No Known Allergies Allergy Verified 03/14/19 11:35 Physical Examination Physical exam: Patient is awake, alert, and oriented 3 Vital signs stable Good chest excursion with deep inspiration and expiration Examination of lumbar spine reveals skin is intact with no abrasions, lacerations, or bruises; no erythema, purulence or signs of infection 2 small abrasion/wound site over the right flank which appear to be healing No pain with palpation over the midline or flanks at the lumbar spine Dorsiflexion, plantarflexion, and extensor hallucis longus positive sustained bilaterally Lower extremity strength 5/5 bilaterally No lower extremity hyperreflexia bilaterally Straight leg test negative bilateral lower extremities Negative Lasegue's test bilaterally No signs or symptoms of DVT; no calf pain No pain with internal and external rotation of the hips bilaterally Neurovascularly intact Results Pertinent studies: CT abdomen and pelvis taken on 03/14/2019 reviewed for orthopedic purposes: Overall alignment appears to be adequately maintained; no evidence of vertebral body compression fracture deformity; L2-3 moderate degenerative disc disease and possible posterior disc protrusion; L4-5 mild degenerative disc disease and possible posterior disc protrusion; Bilateral nephrolithiasis without evidence of obstructing calculus - Labs Labs: Microbiology - Last 24 Hours (Table) 03/14/19 11:20 Urine Culture - Final Urine,Voided H & H 03/14/19 Range/Units 10:50 Hgb 15.3 (11.4-16.0) gm/dL Hct 46.7 H (34.0-46.0) % Result Diagrams: 03/14/19 10:50 03/14/19 10:50 Assessment and Plan Assessment: Assessment: Right flank pain Right lower extremity radiculopathy History of multiple renal calculi Current urinary tract infection receiving antibiotic medication History of frequent urinary tract infections L2-3 and L4-5 degenerative disc disease History of sciatica (1) Lumbar degenerative disc disease Current Visit: Yes Status: Acute Code(s): M51.36 - OTHER INTERVERTEBRAL DISC DEGENERATION, LUMBAR REGION SNOMED Code(s): 43658082 (2) Lumbar back pain with radiculopathy affecting right lower extremity Current Visit: Yes Status: Acute Code(s): M54.16 - RADICULOPATHY, LUMBAR REGION SNOMED Code(s): 411350960 (3) History of sciatica Current Visit: Yes Status: Acute Code(s): Z86.69 - PERSONAL HISTORY OF DIS OF THE NERVOUS SYS AND SENSE ORGANS SNOMED Code(s): 435377061 (4) History of kidney stones Current Visit: Yes Status: Acute Code(s): Z87.442 - PERSONAL HISTORY OF URINARY CALCULI SNOMED Code(s): 602830597 (5) History of frequent urinary tract infections Current Visit: Yes Status: Acute Code(s): Z87.440 - PERSONAL HISTORY OF URINARY (TRACT) INFECTIONS SNOMED Code(s): 8100249930830 (6) Flank pain Current Visit: Yes Status: Acute Code(s): R10.9 - UNSPECIFIED ABDOMINAL PAIN SNOMED Code(s): 736606331 (7) Intractable pain Current Visit: Yes Status: Acute Code(s): R52 - PAIN, UNSPECIFIED SNOMED Code(s): 38209883 (8) Kidney stone Current Visit: Yes Status: Acute Code(s): N20.0 - CALCULUS OF KIDNEY SNOMED Code(s): 78646296 (9) UTI (urinary tract infection) Current Visit: No Status: Acute Code(s): N39.0 - URINARY TRACT INFECTION, SITE NOT SPECIFIED SNOMED Code(s): 99706388 Plan: Plan: 1. Patient has been discussed in detail with Dr. Jaime Taveras. After further discussion with the patient, reviewing her imaging, and further physical examination the patient, we will currently planned to continue conservative treatment in regards to her right flank pain and right lower extremity radiculopathy symptoms. Her symptoms were severe over the weekend she presented to the hospital for further evaluation. At that time her symptoms were felt to possibly be stemming from a kidney stone. She underwent CT imaging. She's been seen and examined by her urologist, Dr. Bryant, who did not feel her symptoms were stemming from a urological condition. Patient does currently have a urinary tract infection is being currently treated with antibiotics. Patient feels her symptoms are fairly well controlled now and she would like to be discharged home today. We did discuss her ongoing right-sided flank pain over the past month without injury along with right lower extremity radiculopathy with pain radiating over the anterior hip and right groin. We discussed her symptoms appear to be stable and she is clear for discharge from an orthopedic spine standpoint. We will plan for further evaluation outpatient setting. Patient is clear for discharge today. Patient may follow up with Frank Torres PA-C or Dr. Jaime Taveras at [facility] in approximately 1 week for further evaluation. We discussed she may participate in activity to tolerance. 2. Patient will continue to be seen and examined by other medical providers including medicine and urology. Time with Patient: Greater than 30 (Including obtaining history, physical examination, reviewing of imaging, and dictation.)
== END 2019-03-15 13:53 | disposition home or self-care (01) ==
LOC: EC 09:53 → 4MS4W 14:10
PROVIDERS: ADMIT Internal Medicine; ATTEND Internal Medicine
DX: N39.0 Urinary tract infection, site not specified (principal); B96.20 Unspecified Escherichia coli [E. coli] as the cause of diseases classified elsewhere; I16.0 Hypertensive urgency; N20.0 Calculus of kidney; M51.16 Intervertebral disc disorders with radiculopathy, lumbar region; E86.0 Dehydration; Q61.5 Medullary cystic kidney; I34.1 Nonrheumatic mitral (valve) prolapse; M43.9 Deforming dorsopathy, unspecified; Z79.891 Long term (current) use of opiate analgesic; Z79.899 Other long term (current) drug therapy; J30.2 Other seasonal allergic rhinitis; Z87.440 Personal history of urinary (tract) infections; Z87.442 Personal history of urinary calculi; Z86.010 Personal history of colon polyps; Z80.0 Family history of malignant neoplasm of digestive organs; Z80.8 Family history of malignant neoplasm of other organs or systems; Z82.0 Family history of epilepsy and other diseases of the nervous system; Z82.69 Family history of other diseases of the musculoskeletal system and connective tissue
CPT/HCPCS: 96376 ×3; 96361 ×2; 96365 ×2; 96366 ×2; 96375 ×2; 99285; 36415; 80053; 82150; 83690; 85025; 81001; 87086; 74176; G0378 ×2; J0360; J1200; J0690 ×2; J1885 ×2; J1170

== ENCOUNTER → 2020-02-23 | Outpatient (CLI) | payer MEDICARE ==
--- NOTE | 2020-02-27 12:30 | MM ---
Reason for exam: screening (asymptomatic). Last mammogram was performed 1 year ago. History: Patient is postmenopausal. Family history of breast cancer in paternal cousin. Took estrogen for 1 year 8 months. Physical Findings: A clinical breast exam by your physician is recommended on an annual basis and results should be correlated with mammographic findings. MG Screening Mammo w CAD Bilateral CC and MLO view(s) were taken. Prior study comparison: February 07, 2019, bilateral MG screening mammo w CAD. February 01, 2018, bilateral MG screening mammo w CAD. The breast tissue is heterogeneously dense. This may lower the sensitivity of mammography. Benign vascular calcifications. No significant changes when compared with prior studies. ASSESSMENT: Negative, BI-RAD 1 RECOMMENDATION: Routine screening mammogram of both breasts in 1 year.
== END | disposition home or self-care (01) ==
LOC: RADMAMWWP 16:35
PROVIDERS: ATTEND Obstetrics & Gynecology
DX: Z12.31 Encounter for screening mammogram for malignant neoplasm of breast (principal)
CPT/HCPCS: 77067

== ENCOUNTER → 2020-10-02 | Outpatient (CLI) | payer MEDICARE ==
--- NOTE | 2020-10-02 15:49 | US ---
EXAMINATION TYPE: US kidneys/renal and bladder DATE OF EXAM: 10/02/2020 COMPARISON: CT 03/14/2019 CLINICAL HISTORY: R31.29 OTHER MICROSCOPIC HEMATURIA. Recurrent UTI UTI EXAM MEASUREMENTS: Right Kidney: 8.6 x 4.8 x 3.5 cm Left Kidney: 10.8 x 5.5 x 4.7 cm Post Void Residual Volume: 89.5 mL Right Kidney: medial lower pole simple cyst = 0.6 x 0.8 x 0.7cm;multiple small hyperechoic foci noted mid pole could be suggestive of small renal calcifications. No hydronephrosis Left Kidney: medial lower pole cysts seen = 1.1 x 0.9 x 1.0cm; multiple renal calcifications seen wit h largest mid pole area = 1.0 x 0.8 x 0.7cm. No hydronephrosis. Bladder: wnl Bilateral Jets seen: yes, small right ureteral jet was seen compared to left jet Normal Post Void Residual small post void bladder residual IMPRESSION: 1. Probable bilateral numerous renal calculi. No hydronephrosis. 2. Bilateral renal cysts, the largest of which are measured above. 3. Small post void urinary bladder residual.
== END | disposition home or self-care (01) ==
LOC: RADUSWWP 09:33
PROVIDERS: ATTEND Family Medicine
DX: N28.1 Cyst of kidney, acquired (principal); R39.198 Other difficulties with micturition; Z87.440 Personal history of urinary (tract) infections
CPT/HCPCS: 76770

== ENCOUNTER → 2021-03-02 | Outpatient (CLI) | payer MEDICARE ==
[2021-03-02 10:38] LABS: Potassium 4.3 mmol/L (3.5-5.1)
[2021-03-02 13:56] LABS: Basophils % (A) 1 %; Eosinophils # (A) 0.1 k/uL (0-0.7); Eosinophils % (A) 1 %; HCT 43.5 % (34.0-46.0); HGB 13.9 gm/dL (11.4-16.0); Lymphocytes # (A) 0.9 k/uL (1.0-4.8); Lymphocytes % (A) 22 %; MCH 30.9 pg (25.0-35.0); MCV 96.4 fL (80.0-100.0); Mean Platelet Volume 8.5; Monocytes # (A) 0.3 k/uL (0-1.0); Monocytes % (A) 7 %; Neutrophils # (A) 2.8 k/uL (1.3-7.7); Neutrophils % (A) 68 %; Platelet Count 251 k/uL (150-450); RBC 4.52 m/uL (3.80-5.40); RDW 13.1 % (11.5-15.5); WBC 4.1 k/uL (3.8-10.6)
== END | disposition home or self-care (01) ==
LOC: LABPAT 09:08
PROVIDERS: ATTEND Obstetrics & Gynecology
DX: Z01.812 Encounter for preprocedural laboratory examination (principal); I10 Essential (primary) hypertension; N81.11 Cystocele, midline
CPT/HCPCS: 36415; 80051; 82565; 84520; 85025; 87086; 93005

== ENCOUNTER → 2021-03-06 | Outpatient (CLI) | payer MEDICARE ==
--- NOTE | 2021-03-08 14:41 | MM ---
Reason for exam: screening (asymptomatic). Last mammogram was performed 1 year ago. History: Patient is postmenopausal. Family history of breast cancer in paternal cousin. Took estrogen for 1 year 8 months. Physical Findings: A clinical breast exam by your physician is recommended on an annual basis and results should be correlated with mammographic findings. MG Screening Mammo w CAD Bilateral CC and MLO view(s) were taken. Prior study comparison: February 23, 2020, bilateral MG screening mammo w CAD. February 07, 2019, bilateral MG screening mammo w CAD. The breast tissue is heterogeneously dense. This may lower the sensitivity of mammography. No significant changes when compared with prior studies. ASSESSMENT: Negative, BI-RAD 1 RECOMMENDATION: Routine screening mammogram of both breasts in 1 year.
== END | disposition home or self-care (01) ==
LOC: RADMAMWWP 13:20
PROVIDERS: ATTEND Obstetrics & Gynecology
DX: Z12.31 Encounter for screening mammogram for malignant neoplasm of breast (principal); Z78.0 Asymptomatic menopausal state; Z80.3 Family history of malignant neoplasm of breast
CPT/HCPCS: 77067

== ENCOUNTER 2021-03-11 07:41 | Day surgery (SDC) | payer MEDICARE ==
[2021-02-19 17:12] VITALS: BMI 24.2
[~2021-03-11 07:41] MED LIST: DEXAMETHASONE SOD PHOSPHATE 4 MG/ML 1 ML VIAL IV ONE; LACTATED RINGERS 1,000 ML IV SCH; MORPHINE SULFATE 4 MG/ML SYRINGE IV PRN; NALOXONE 0.4 MG/ML 1 ML VIAL IV PRN; ONDANSETRON 4 MG/2 ML VIAL IVP ONE
[2021-03-11] MEDS ORDERED: ONDANSETRON 4 MG/2 ML VIAL ONE (09:00)
[2021-03-11] MEDS ORDERED: fentaNYL (PF) 50 MCG/ML 2 ML AMP IVP ONE (09:16)
[2021-03-11] MEDS ORDERED: MIDAZOLAM 2 MG/2 ML VIAL IVP ONE (09:16)
[2021-03-11] MEDS ORDERED: NALOXONE 0.4 MG/ML 1 ML VIAL IV PRN (09:30)
--- NOTE | 2021-03-11 09:30 | P.ANPRN ---
Procedure Note - Anesthesia - Epidural/Spinal Spinal Time Out Performed: Yes Date of Procedure: 03/11/21 Procedure Start Time: :15 Procedure Stop Time: :22 Location of Patient: PreOp Indication: Acute Post-Operative Pain, Requested by Surgeon Sedation Type: Sedate with meaningful contact maintained Preparation: Sterile Prep Position: Sitting Needle Guage: 25 (Fenatnyle 25 mcg + 300 mcg Duramorph intrathecally) Blood Aspirated: No Pain Paresthesia on Injection Noted: No Events: Uneventful and Well Tolerated
[2021-03-11] MEDS ORDERED: SUCCINYLCHOLINE CHLORIDE 100 MG/5 ML SYR IV ONE (09:45)
[2021-03-11] MEDS ORDERED: fentaNYL (PF) 50 MCG/ML 2 ML AMP ONE (09:45)
[2021-03-11] MEDS ORDERED: MORPHINE SULFATE (PF) 0.3 MG/0.3 ML SYR ONE (09:45)
[2021-03-11] MEDS ORDERED: ePHEDrine 50 MG/ML 1 ML AMP ONE (09:45)
[2021-03-11] MEDS ORDERED: PROPOFOL 10 MG/ML 20 ML VIAL IV ONE (09:45)
[2021-03-11] MEDS ORDERED: LIDOCAINE 1% INJ 10MG/ML (20 ML MDV) ONE (09:45)
[2021-03-11] MEDS ORDERED: WATER FOR INJECTION, STERILE 10 ML VIAL IV ONE (09:45)
[2021-03-11] MEDS ORDERED: VASOPRESSIN 20 UNIT/ML 1 ML VIAL SQ ONE ×2 (09:48→10:08)
[2021-03-11] MEDS ORDERED: BACITRACIN ZINC 500 UNIT/GM OINT 28.4 GM TUBE TOPICAL ONE ×2 (09:49→10:35)
[2021-03-11] MEDS ORDERED: LACTATED RINGERS 1,000 ML IV ONE (10:48)
[2021-03-11] MEDS ORDERED: ONDANSETRON 4 MG/2 ML VIAL IVP PRN (10:59)
[2021-03-11] MEDS ORDERED: METOCLOPRAMIDE 5 MG/ML 2 ML VIAL IVP PRN (10:59)
[2021-03-11] MEDS ORDERED: diphenhydrAMINE 50 MG/ML 1 ML VIAL IVP PRN (10:59)
[2021-03-11] MEDS ORDERED: ZOLPIDEM 5 MG TAB PO PRN (10:59)
[2021-03-11] MEDS ORDERED: SIMETHICONE 80 MG CHEWABLE PO PRN (10:59)
[2021-03-11] MEDS ORDERED: KETOROLAC 15 MG/ML 1 ML VIAL IVP PRN (10:59)
--- NOTE | 2021-03-11 10:59 | P.OP ---
Date of Procedure: 03/11/21 Preoperative Diagnosis: Symptomatic uterine prolapse and cystocele. Postoperative Diagnosis: Same, normal-appearing atrophic ovaries bilaterally Procedure(s) Performed: Vaginal hysterectomy, anterior colporrhaphy Anesthesia: KOBYA Surgeon: Rosario Rosas Cotton Chopper #1: Ciaran Winkler Estimated Blood Loss (ml): 20 IV fluids (ml): 900 Urine output (ml): 200 Pathology: other (Cervix and uterus) Condition: stable Disposition: PACU Operative Findings: Normal-appearing atrophic ovaries bilaterally. Description of Procedure: Patient is brought to the operating suite where a spinal with Duramorph had been administered in preoperative area, and a general anesthetic is then administered without difficulty. She's placed in the dorsal lithotomy position., Vagina, perineal bodies are all prepped and draped in the usual sterile fashion. Antibiotics are given. The appropriate timeout is performed to assure proper patient and procedural identification. Bladder is drained for approximately 200 mL of clear yellow urine. Weighted speculum was placed into the vagina. Anterior lip of the cervix is grasped with a double-tooth tenaculum. The cervix is injected circumferentially with a dilute Pitressin solution, and then a akiak blade scalpel is used to incise the mucosa circumferentially with a V positioning at 6:00. Peritoneum is entered at 6:00, suture tied with 2-0 Vicryl and held with a hemostat. The right uterosacral cardinal ligament is identified, clamped cut and suture ligated. The suture is held laterally with a hemostat. Same procedure is carried out contralaterally. At all times the mucosa is swept well from the operative field to avoid bladder and/or ureteral injury. Uterine vasculature is identified, clamped cut and suture ligated. Anterior peritoneum is entered at 12:00. The uterus is "walked out" posteriorly. Charanjit clamps are used across the final pedicles. The cervix and uterus are removed and sent to pathology for evaluation. 0 Vicryl suture is used on these pedicles now to tying a Bryon fashion, flashed, and tied again for excellent hemostasis. A sponge stick is used to evaluate the ovaries, and they appeared normal and atrophic and are left in situ per the patient's wishes. The shallow billed speculum is then placed. The 2-0 Vicryl suture is brought around in a pursestring fashion to close the mucosa. The uterosacral cardinal ligaments are now brought across to incorporate the opposite ligament as well as vaginal mucosa. 2 additional wuiqec-yq-yhxle sutures are used of 0 Vicryl to finish the vaginal cuff closure. Allis clamps are used anteriorly and the anterior repair is commenced. The same dilute Pitressin solution is used to inject the mucosa in the midline. Metzenbaum scissors are used to undermine the mucosa in the midline. The mucosa is incised with the Metzenbaum scissors. Demarco catheter is placed. The mucosa is swept well from the underlying fascial plane bilaterally with a sponge rolled finger. 2-0 Vicryl is used in an interrupted fashion to bring the fascial edges together in the midline thereby completely reducing the cystocele. Mucosa is trimmed with Metzenbaum scissors. 2-0 Vicryl sutures used now in a running locking fashion to bring the mucosa together. The vagina is clean and dry. It is packed with one-inch iodophor gauze with basic tracing. All sponge needle and enhancement counts are correct. Patient is brought back to recovery room in excellent condition with stable vital signs including blood pressure 105/58, pulse 63, 99% O2 saturation.
[2021-03-11 20:54] VITALS: BP 102/64; PULSE 79; TEMP 98
[2021-03-12 01:17] VITALS: RESP 16
--- NOTE | 2021-03-12 06:53 | P.DS ---
Providers Date of admission: 03/11/21 Expected date of discharge: 03/12/21 Attending physician: Rosario Rosas Primary care physician: Vinny Calles MD Hospital Course: This is a 70-year-old white female who presented with increasingly symptomatic vaginal vault prolapse, cystocele and uterine prolapse. After thorough office consultation she elected to proceed with surgical repair, declining second opinion and declining the option of pessary use. Please see dictated history and physical for details. Yesterday under my care with the aid of a spinal and Duramorph, patient underwent a vaginal hysterectomy and anterior colporrhaphy. She did well intraoperatively, ovaries appeared normal and were left in situ. Vagina was packed with iodoform gauze, Demarco catheter placed. This was estimated blood loss of 20 mL's. Please see my dictated This morning the patient is doing well. She is voiding, ambulating, passing flatus without difficulty. Vital signs are stable and she is afebrile. Yesterday evening there was a small puddle of red vaginal blood noted, after changing of pads this has remained very miniscule. This morning there is only scant vaginal drainage, appropriate for her preoperative status. Demarco catheter is draining clear urine, Demarco catheter and vaginal packing had been removed. Diet and activity advanced. Bladder training will commence. Patient is judged to be in very good condition for discharge home pending successful bladder training. She will follow-up with me in the office in 2 weeks. I have reminded her to use Advil or Aleve, or Motrin [id number] as needed for pain. She is to call with any back pain, any pain not alleviated by nrnp-xne-kunwfod products, any heavy vaginal bleeding, or indeed with any concerns. No intercourse, tampons or douching, no heavy lifting. No driving for 2 weeks. Resume all home medications. Patient will call with any concerns or difficulties for discussion and advice. Assessment: Doing well first postoperative day Patient Condition at Discharge: Good Plan - Discharge Summary New Discharge Prescriptions: No Action amLODIPine BESYLATE/BENAZEPRIL [amLODIPine BESYLATE/BENAZEPRIL 10-20 mg] 1 each PO DAILY Omeprazole 20 mg PO QAM Fiber 1 dose PO DAILY Discharge Medication List Fiber 1 dose PO DAILY 02/19/21 [History] Omeprazole 20 mg PO QAM 02/19/21 [History] amLODIPine BESYLATE/BENAZEPRIL [amLODIPine BESYLATE/BENAZEPRIL 10-20 mg] 1 each PO DAILY 02/19/21 [History] Follow up Appointment(s)/Referral(s): Rosario Rosas MD [STAFF PHYSICIAN] - 2 Weeks
== END 2021-03-12 11:00 | disposition home or self-care (01) ==
LOC: OR 07:41 → 4FBP 11:20 → OR 03-12 11:00
PROVIDERS: ATTEND Obstetrics & Gynecology
DX: N81.4 Uterovaginal prolapse, unspecified (principal); Z87.440 Personal history of urinary (tract) infections; E78.00 Pure hypercholesterolemia, unspecified; K21.9 Gastro-esophageal reflux disease without esophagitis; Z87.442 Personal history of urinary calculi; Z20.822 Contact with and (suspected) exposure to COVID-19
CPT/HCPCS: 86900; 86901; 88305; 86850; 87635; 58260; J2250; J1200; J1100; J0690; J2405; J2001; J2274; J3010; J0330; J2704

== ENCOUNTER → 2021-06-10 | Outpatient (CLI) | payer MEDICARE ==
--- NOTE | 2021-06-10 16:18 | US ---
EXAMINATION TYPE: US abdomen complete DATE OF EXAM: 06/10/2021 COMPARISON: Renal US CLINICAL HISTORY: 71-year-old female R10.11 RUQ PAIN. Pt states discomfort within RUQ TECHNIQUE: Multiple sonographic images of the abdomen are obtained. FINDINGS: EXAM MEASUREMENTS: Liver Length: 13.5 cm Gallbladder Wall: 0.1 cm CBD: 0.4 cm Right Kidney: 9.1 x 3.6 x 4.0 cm Left Kidney: 10.7 x 4.9 x 4.9 cm Pancreas: wnl Liver: Cyst right medial lobe= 2.2 x 1.7 x 2.5 cm, smaller cyst right anterior lobe= 0.7 cm Gallbladder: wnl Evidence for sonographic Torres's sign: Yes CBD: wnl Spleen: Unable to visualize, lung in field of view Right Kidney: No evidence of hydro, multiple probable calculi scattered throughout kidney, largest 0 .4cm in size Left Kidney: No evidence of hydro, multiple probable calculi scattered throughout kidney, largest 0. 5cm in size Upper IVC: wnl Abd Aorta: wnl IMPRESSION: 1. A couple benign hepatic cysts measuring up to 2.5 cm. 2. No gallstones or biliary ductal dilatation. However, sonographic Torres sign is reported positive. This may reflect referred pain. If further imaging evaluation of the gallbladder is desired, conside r HIDA scan. 3. Unable to adequately visualize the spleen due to high position. 4. Bilateral nephrolithiasis measuring up to 5 mm. No hydronephrosis seen.
== END | disposition home or self-care (01) ==
LOC: RADUSWWP 13:27
PROVIDERS: ATTEND Family Medicine
DX: K76.89 Other specified diseases of liver (principal); N20.0 Calculus of kidney
CPT/HCPCS: 76700

== ENCOUNTER → 2022-03-12 | Outpatient (CLI) | payer MEDICARE ==
--- NOTE | 2022-03-13 10:27 | MM ---
Reason for Exam: Screening (asymptomatic). Last screening mammogram was performed 12 month(s) ago. Patient History: Menarche at age 15. First Full-Term at age 25. Postmenopausal. Estrogen for 1 year, 8 months. Paternal cousin had breast cancer, age 60. Risk Values: Sophie 5 year model risk: 1.4%. NCI Lifetime model risk: 4.1%. Prior Study Comparison: 02/07/2019 Bilateral Screening Mammogram, [facility]. 02/23/2020 Bilateral Screening Mammogram, [facility]. 03/06/2021 Bilateral Screening Mammogram, [facility]. Tissue Density: The breast tissue is heterogeneously dense. This may lower the sensitivity of mammography. Findings: Analyzed By CAD. Pattern appears stable. Benign vascular calcifications present bilaterally. No significant interval changes are evident. No suspicious groups of microcalcifications, spiculated or lobular masses, architectural distortion or other secondary signs of malignancy are mammographically apparent. Overall Assessment: Benign, BI-RAD 2 Management: Screening Mammogram of both breasts in 1 year. A negative mammogram report should not preclude additional follow up of suspicious palpable abnormalities. Patient should continue monthly self breast exam. A clinical breast exam by your physician is recommended on an annual basis and results should be correlated with mammographic findings. Electronically signed and approved by: Rob Lora D.O. Radiologis
== END | disposition home or self-care (01) ==
LOC: RADMAMWWP 12:48
PROVIDERS: ATTEND Obstetrics & Gynecology
DX: Z12.31 Encounter for screening mammogram for malignant neoplasm of breast (principal); Z78.0 Asymptomatic menopausal state; Z80.3 Family history of malignant neoplasm of breast
CPT/HCPCS: 77067

== ENCOUNTER → 2022-11-11 | Outpatient (CLI) | payer MEDICARE ==
[2022-11-11 16:35] LABS: Basophils # (A) 0.05 X 10*3/uL (0.00-0.10); Basophils % (A) 1.1 %; Eosinophils # (A) 0.06 X 10*3/uL (0.04-0.35); Eosinophils % (A) 1.3 %; HCT 44.2 % (37.2-46.3); HGB 14.6 d/dL (12.0-15.0); Lymphocytes # (A) 1.01 X 10*3/uL (0.90-5.00); Lymphocytes % (A) 21.8 %; MCH 30.3 pg (27.0-32.0); MCV 91.7 FL (80.0-97.0); Mean Platelet Volume 10.1 FL (9.5-12.2); Monocytes # (A) 0.39 X 10*3/uL (0.20-1.00); Monocytes % (A) 8.4 %; NRBC Per 100 WBC 0 X 10*3/uL (0.00-0.01); Neutrophils # (A) 3.11 X 10*3/uL (1.80-7.70); Neutrophils % (A) 67.2 %; Platelet Count 288 X 10*3/uL (140-440); RBC 4.82 X 10*6/uL (4.10-5.20); RDW 13.9 % (11.5-14.5); WBC 4.63 X 10*3/uL (4.50-10.00)
[2022-11-11 17:13] LABS: ALT 24 U/L (8-44); AST 20 U/L (13-35); Albumin 4.6 d/dL (3.8-4.9); Albumin/Globulin Ratio 1.84 Ratio (1.60-3.17); Alkaline Phosphatase 91 U/L (41-126); BUN/Creat Ratio 21.25 Ratio (12.00-20.00); Calcium 9.8 mg/dL (8.7-10.3); Chloride 104 mmol/L (96-109); Globulin 2.5 d/dL (1.6-3.3); Glucose 94 mg/dL (70-110); LDL Cholesterol,Calculated 164.6 mg/dL (0.0-131.0); Potassium 4.1 mmol/L (3.5-5.5); Sodium 141 mmol/L (135-145); T4, Free (Free Thyroxine) 1.49 ng/dL (0.80-1.80); Total Bilirubin 0.9 mg/dL (0.3-1.2); Total Protein 7.1 d/dL (6.2-8.2); VLDL Calculation 18.94 mg/dL (5.00-40.00)
== END | disposition home or self-care (01) ==
LOC: LABWHC1 09:18
PROVIDERS: ATTEND Nurse Practitioner
DX: E78.5 Hyperlipidemia, unspecified (principal); R53.83 Other fatigue
CPT/HCPCS: 36415; 80053; 80061; 82306; 82607; 82746; 84439; 84443; 85025

== ENCOUNTER → 2023-03-20 | Outpatient (CLI) | payer MEDICARE ==
--- NOTE | 2023-03-23 08:42 | MM ---
Reason for Exam: Screening (asymptomatic). Last screening mammogram was performed 12 month(s) ago. Patient History: Menarche at age 15. First Full-Term at age 25. Postmenopausal. Patient has history of breast feeding. Currently using Estrogen, beginning at age 70 for 1 year. Paternal cousin had breast cancer, age 60. Risk Values: Sophie 5 year model risk: 1.4%. NCI Lifetime model risk: 4.0%. Prior Study Comparison: 12/23/2016 Bilateral Screening Mammogram, [facility]. 02/01/2018 Bilateral Screening Mammogram, [facility]. 02/07/2019 Bilateral Screening Mammogram, [facility]. 02/23/2020 Bilateral Screening Mammogram, [facility]. 03/06/2021 Bilateral Screening Mammogram, [facility]. 03/12/2022 Bilateral MG screening mammo w CAD, [facility]. Tissue Density: The breast tissue is heterogeneously dense. This may lower the sensitivity of mammography. Findings: Analyzed By CAD. There is no suspicious group of microcalcifications or new suspicious mass in either breast. Overall Assessment: Negative, BI-RAD 1 Management: Screening Mammogram of both breasts in 1 year. . Patient should continue monthly self-breast exams. A clinical breast exam by your physician is recommended on an annual basis. This exam should not preclude additional follow-up of suspicious palpable abnormalities. Note on Sophie scores and lifetime risk: 1. A Sophie score greater than 3% is considered moderate risk. If this is the case, consider specialist referral to assess eligibility for a risk reducing agent. 2. If overall lifetime risk for the development of breast cancer is 20% or higher, the patient may qualify for future screening with alternating mammogram and breast MRI. Electronically signed and approved by: Curry Blanca M.D. Radiologis
== END | disposition home or self-care (01) ==
LOC: RADMAMWWP 08:06
PROVIDERS: ATTEND Obstetrics & Gynecology
DX: Z12.31 Encounter for screening mammogram for malignant neoplasm of breast (principal); Z78.0 Asymptomatic menopausal state; Z80.3 Family history of malignant neoplasm of breast
CPT/HCPCS: 77067

== ENCOUNTER 2024-01-10 08:10 | Emergency (ER) | payer MEDICARE ==
[2024-01-10 08:24] VITALS: TEMP 97.5
[2024-01-10] MEDS: ONDANSETRON 4 MG/2 ML VIAL IVP STA (08:53)
[2024-01-10] MEDS: MORPHINE SULFATE 4 MG/ML SYRINGE IVP STA ×2 (08:53→10:55)
[2024-01-10] MEDS: KETOROLAC 15 MG/ML 1 ML VIAL IVP STA ×2 (08:55→10:55)
[2024-01-10] MEDS: methylPREDNISolone SOD SUCCI 125 MG/2 ML VIAL IV STA (08:56)
--- NOTE | 2024-01-10 09:42 | CT ---
EXAMINATION TYPE: CT lumbar spine wo con DATE OF EXAM: 01/10/2024 9:32 AM COMPARISON: None HISTORY: Back, hip and leg pain CT DLP: 715.3 mGycm Automated exposure control for dose reduction was used. Unenhanced CT of the lumbar spine was performed. Bone and soft tissue window settings are submitted as well as coronal and sagittal reconstructions. Findings: The lumbar vertebral segments are normal in height and alignment and there is no fracture or subluxat ion. There is moderate to severe degenerative disc disease at the L1-2 level where there is moderate to se lc disc space narrowing, vacuum phenomena, this endplate changes and spondylosis. There is mild degenerative disease at the L2-3, L3-4, L4-5 and L5-S1 levels where there is mild disc space narrowing, spondylosis and vacuum phenomena at the L4-5 and L5-S1 levels. There is a large far right lateral disc herniation at the L3-4 level resulting in severe compromise o f the neural foramina and right lateral recess. There is mild spinal stenosis at the L3-4 and L4-5 level secondary to circumferential disc bulge and mild thickening of the ligamentum flavum. There is mild facet arthropathy at the L4-5 and L5-S1 levels. There is mild bony neural foraminal encroachment at the L5-S1 level on the left. The graph impression : 1. No lumbar spine fracture or malalignment. 2. Multilevel disc disease severe at the L1-2 level. 3. Large right lateral disc herniation at the L3-4 level as described above. 4. Mild spinal stenosis at the L3-4 and L4-5 levels.
--- NOTE | 2024-01-10 09:45 | CT ---
EXAMINATION TYPE: CT hip RT wo con DATE OF EXAM: 01/10/2024 COMPARISON: None HISTORY: Back, hip and leg pain CT DLP: 401.7 mGycm Automated exposure control for dose reduction was used. FINDINGS: There is no fracture, dislocation, intraosseous or intra-articular abnormality. There are no soft tis yamile abnormality. IMPRESSION: No significant abnormality of the right hip.
--- NOTE | 2024-01-10 10:01 | ED ---
Back Pain HPI - General Chief Complaint: Back Pain/Injury Stated Complaint: back/hip/leg pain Time Seen by Provider: 01/10/24 08:28 Source: patient, RN notes reviewed Limitations: no limitations - History of Present Illness Initial Comments: 73-year-old female presents emergency department chief complaint of low back pain, right leg pain. Patient states she has had pain for last week she has had issues in the past but never last this long she was seen at [facility] had x- rays and was given medications. Patient states pain is worsened. She states that she she gets some relief with laying down but states that severe unbearable pain when she stands up. Patient states she was on steroids, muscle flexors, pain meds. Patient states that she has had no bowel, bladder and cons retention she has severe pain rating down the front of her thigh to her mid richardson. Patient denies any saddle anesthesias no lower extremity paresthesias - Related Data Home Medications Medication Instructions Recorded Confirmed Fiber 1 dose PO DAILY 02/19/21 03/11/21 Omeprazole 20 mg PO QAM 02/19/21 03/11/21 amLODIPine BESYLATE/BENAZEPRIL 1 each PO DAILY 02/19/21 03/11/21 [amLODIPine BESYLATE/BENAZEPRIL 10-20 mg] Previous Rx's Medication Instructions Recorded HYDROcodone/APAP 7.5-325MG [[place] 1 tab PO Q6HR PRN 3 Days #12 tab 01/10/24 7.5-325] predniSONE 50 mg PO DAILY #5 tab 01/10/24 Allergies Allergy/AdvReac Type Severity Reaction Status Date / Time hydromorphone [From Dilaudid] Allergy Nausea Verified 01/10/24 08:24 nitrofurantoin Allergy Nausea Verified 01/10/24 08:24 Sulfa (Sulfonamide Allergy Rash/Hives Verified 01/10/24 08:24 Antibiotics) sulfamethoxazole Allergy Rash/Hives Verified 01/10/24 08:24 [From Bactrim] trimethoprim [From Bactrim] Allergy Rash/Hives Verified 01/10/24 08:24 Review of Systems ROS Statement: Those systems with pertinent positive or pertinent negative responses have been documented in the HPI. ROS Other: All systems not noted in ROS Statement are negative. Past Medical History Past Medical History: Mitral Valve Prolapse (MVP), Renal Disease Additional Past Medical History / Comment(s): Pt has had R sided back pain with BMs, nephrolithiasis/pt has passed kidney stones on her own, UTIs, UTI with sepsis, MVP, curvature lower spine, seasonal allergies. History of Any Multi-Drug Resistant Organisms: None Reported Past Surgical History: Orthopedic Surgery, Tonsillectomy Additional Past Surgical History / Comment(s): colonoscopies with benign polypectomy, deviated septum, bilateral feet bunionectomies/5th toe surgery to correct bones, vaginal polyps-benign removed. Past Anesthesia/Blood Transfusion Reactions: No Reported Reaction Past Psychological History: No Psychological Hx Reported Smoking Status: Never smoker Past Alcohol Use History: Occasional Past Drug Use History: None Reported - Past Family History Father Family Medical History: Cancer Additional Family Medical History / Comment(s): AT AGE 56 FROM COLON CANCER. Mother Family Medical History: Cancer Additional Family Medical History / Comment(s): AGE 88 FROM A RARE SARCOMA RT UPPER ARM MSUCLE. Sister(s) Family Medical History: Deep Vein Thrombosis (DVT) Additional Family Medical History / Comment(s): PT HAS 3 SISTERS. #1 W/ MS, #2 DDD AND COLITIS, #3 DDD. Liver cancer. General Exam Limitations: no limitations General appearance: alert, in no apparent distress Head exam: Present: atraumatic, normocephalic, normal inspection Respiratory exam: Present: normal lung sounds bilaterally. Absent: respiratory distress, wheezes, rales, rhonchi, stridor Cardiovascular Exam: Present: regular rate, normal rhythm, normal heart sounds. Absent: systolic murmur, diastolic murmur, rubs, gallop, clicks GI/Abdominal exam: Present: soft, normal bowel sounds. Absent: distended, tenderness, guarding, rebound, rigid Extremities exam: Present: normal inspection, full ROM, normal capillary refill. Absent: tenderness, pedal edema, joint swelling, calf tenderness Back exam: Present: tenderness, paraspinal tenderness, vertebral tenderness. Absent: full ROM Neurological exam: Present: alert, reflexes normal. Absent: motor sensory deficit Course Vital Signs 01/10/24 01/10/24 01/10/24 08:21 08:45 11:40 Temperature 97.5 F L Pulse Rate 79 83 81 Respiratory 20 22 16 Rate Blood Pressure 162/64 172/88 115/94 O2 Sat by Pulse 99 98 100 Oximetry Medical Decision Making - Medical Decision Making Was pt. sent in by a medical professional or institution (MAGDALENA Foy, VOICE INTERCEPT TECHNICIAN, urgent care, hospital, or retirement...) When possible be specific @ -No Did you speak to anyone other than the patient for history (EMS, parent, family, police, friend...)? What history was obtained from this source @ -No Did you review nursing and triage notes (agree or disagree)? Why? @ -I reviewed and agree with nursing and triage notes Were old charts reviewed (outside hosp., previous admission, EMS record, old EKG, old radiological studies, urgent care reports/EKG's, retirement records)? Report findings @ -Reviewed x-rays from outpatient hospital lumbar spine Differential Diagnosis (chest pain, altered mental status, abdominal pain women, abdominal pain men, vaginal bleeding, weakness, fever, dyspnea, syncope, headache, dizziness, GI bleed, back pain, seizure, CVA, palpatations, mental health, musculoskeletal)? @ -Differential Back Pain: Strain, zoster, cauda equina syndrome, epidural abscess, vertebral osteomyelitis, discitis, fracture, subluxation, disc herniation, DJD, spinal stenosis, dissection, AAA, pancreatitis, peptic ulcer disease, pyelonephritis, kidney stone, this is not meant to be an all-inclusive list. EKG interpreted by me (3pts min.). @ -As above X-rays interpreted by me (1pt min.). @ -None done CT interpreted by me (1pt min.). @ -CT lumbar spine showing severe degenerative changes, large discrimination L3- L4 to lateral recess on the right causing severe foraminal stenosis CT of the hip shows no acute fracture or significant malady U/S interpreted by me (1pt. min.). @ -None done What testing was considered but not performed or refused? (CT, X-rays, U/S, labs)? Why? @ -None What meds were considered but not given or refused? Why? @ -None Did you discuss the management of the patient with other professionals (professionals i.e. MAGDALENA Foy, VOICE INTERCEPT TECHNICIAN, lab, RT, psych nurse, social insurance analyst, radiology therapist, teacher, wildlife conservation officer, pillowcase folder)? Give summary @ -No Was smoking cessation discussed for >3mins.? @ -No Was critical care preformed (if so, how long)? @ -No Were there social determinants of health that impacted care today? How? (Homelessness, low income, unemployed, alcoholism, drug addiction, transportation, low edu. Level, literacy, decrease access to med. care, correction, rehab)? @ -No Was there de-escalation of care discussed even if they declined (Discuss DNR or withdrawal of care, Hospice)? DNR status @ -No What co-morbidities impacted this encounter? (DM, HTN, Smoking, COPD, CAD, Cancer, CVA, ARF, Chemo, Hep., AIDS, mental health diagnosis, sleep apnea, morbid obesity)? @ -None Was patient admitted / discharged? Hospital course, mention meds given and route, prescriptions, significant lab abnormalities, going to OR and other pertinent info. @ -Discharge patient's pain is improved at this time she will follow-up with orthopedics spine for evaluation. Patient discharged with steroids, analgesics and return parameters magi patient has no red flag symptoms. Patient agrees with plan was able to ambulate. Undiagnosed new problem with uncertain prognosis? @ -No Drug Therapy requiring intensive monitoring for toxicity (Heparin, Nitro, Insulin, Cardizem)? @ -No Were any procedures done? @ -No Diagnosis/symptom? @ -Lumbar disc herniation Acute, or Chronic, or Acute on Chronic? @ -Acute Uncomplicated (without systemic symptoms) or Complicated (systemic symptoms)? @ -Uncomplicated Side effects of treatment? @ -No Exacerbation, Progression, or Severe Exacerbation? @ -No Poses a threat to life or bodily function? How? (Chest pain, [place], HI, pneumonia, PE, COPD, DKA, ARF, appy, cholecystitis, CVA, Diverticulitis, Homicidal, Suicidal, threat to staff... and all critical care pts) @ -No Disposition Clinical Impression: Lumbar disc herniation with radiculopathy Disposition: HOME SELF-CARE Condition: Stable Instructions (If sedation given, give patient instructions): Acute Low Back Pain (ED) Additional Instructions: Please return to the Emergency Department if symptoms worsen or any other concerns. Prescriptions: HYDROcodone/APAP 7.5-325MG [[place] 7.5-325] 1 tab PO Q6HR PRN 3 Days #12 tab PRN Reason: pain predniSONE 50 mg PO DAILY #5 tab Is patient prescribed a controlled substance at d/c from ED?: Yes When asked, does pt state using other controlled substances?: No If prescribed controlled substance>3 days was MAPS reviewed?: Prescribed <3 Days If opioid is for acute pain is fill amount 7 days or less?: Yes If Rx opioid, was Start Talking consent form obtained?: Yes Referrals: Katy Cochran MD [Primary Care Provider] - 1-2 days Adi Newton DO [Doctor of Osteopathic Medicine] - 1-2 days Tiera Taveras DO [Doctor of Osteopathic Medicine] - 1-2 days Time of Disposition: 10:47
[2024-01-10 11:41] VITALS: BP 115/94; PULSE 81; RESP 16
== END 2024-01-10 12:22 | disposition home or self-care (01) ==
LOC: EC 08:10
CPT/HCPCS: 72131; 96374; 96375; 96376; 99284

== ENCOUNTER → 2024-01-15 | Outpatient (CLI) | payer MEDICARE ==
--- NOTE | 2024-01-15 10:02 | MR ---
EXAMINATION TYPE: MR lumbar spine wo con DATE OF EXAM: 01/15/2024 7:47 AM CLINICAL INDICATION: Female, 73 years old with history of M54.16 RADICULOPATHY, LUMBAR REGION; PHH, L ower back pain, RLE radiculopathy, injury 01-03-24. COMPARISON: None TECHNIQUE: Multi planar, multi sequence imaging was performed utilizing: T1-weighted, T2-weighted, a nd turbo inversion recovery imaging of the lumbar spine. IV Contrast: cc . (None if empty) FINDINGS: Alignment: The lumbar vertebral bodies have preserved heights and alignment. Cord: The conus medullaris and the distal spinal cord appear unremarkable with regards to their signa l intensity and morphology. Bones/Discs: Mild degeneration changes throughout the spine with osteophyte formation and facet joint arthropathy. Intervertebral disc signal is maintained. Reactive adjoining endplate edema at L3-L4 an d L1-L2 T12-L1: No evidence of significant spinal canal stenosis or neural foraminal stenosis. L1-L2: No evidence of significant spinal canal stenosis or neural foraminal stenosis. L2-L3: No evidence of significant spinal canal stenosis or neural foraminal stenosis. L3-L4: Foraminal disc extrusion abutting multiple nerve roots in the spinal canal and displacing the exiting nerve. There is superior migration up to 16 mm of disc material is severe encroachment of the right disc extrusion. The left neural foramen is mildly narrowed. L4-L5: No evidence of significant spinal canal stenosis or neural foraminal stenosis. L5-S1: The disc has a rounded posterior morphology without significant spinal canal stenosis. Facet j oint arthropathy with mild bilateral neural foraminal stenosis. No significant spinal canal or neural foraminal stenosis in the remainder of the visualized levels. Other findings: None. IMPRESSION: 1. L3-L4 Foraminal disc extrusion abutting multiple nerve roots in the spinal canal and displacing t he exiting nerve. There is superior migration up to 16 mm of disc material superiorly to severe steno sis of the right neural foramen. 2. Moderate disc degeneration with associated osteoarthritic changes.
== END | disposition home or self-care (01) ==
LOC: RADMRIMAIN 07:07
PROVIDERS: ATTEND Family Medicine
DX: M54.16 Radiculopathy, lumbar region
CPT/HCPCS: 72148

== ENCOUNTER → 2024-01-25 | Outpatient (CLI) | payer MEDICARE ==
--- NOTE | 2024-01-25 11:20 | XR ---
EXAMINATION TYPE: XR chest 2V DATE OF EXAM: 01/25/2024 COMPARISON: 12/14/2016 INDICATION: Preprocedure evaluation TECHNIQUE: Frontal and lateral views of the chest are obtained. FINDINGS: The heart size is normal. The pulmonary vasculature is normal. The lungs are clear. IMPRESSION: 1. No acute pulmonary process. [facility], , 01/25/2024 11:18 AM
[2024-01-25 11:29] LABS: INR 0.9 (<1.2); Prothrombin Time 9.8 sec (10.0-12.5)
[2024-01-25 11:33] LABS: Partial Thromboplastin Time 20.3 sec (22.0-30.0)
[2024-01-25 15:06] LABS: Basophils # (A) 0.02 X 10*3/uL (0.00-0.10); Basophils % (A) 0.3 %; Eosinophils # (A) 0.05 X 10*3/uL (0.04-0.35); Eosinophils % (A) 0.6 %; HCT 42.7 % (37.2-46.3); Lymphocytes # (A) 1.92 X 10*3/uL (0.90-5.00); Lymphocytes % (A) 24.3 %; MCH 30.4 pg (27.0-32.0); MCHC 32.8 g/dL (32.0-37.0); MCV 92.6 FL (80.0-97.0); Mean Platelet Volume 9.7 FL (9.5-12.2); Monocytes # (A) 0.63 X 10*3/uL (0.20-1.00); NRBC Per 100 WBC 0 X 10*3/uL (0.00-0.01); Neutrophils # (A) 5.23 X 10*3/uL (1.80-7.70); Neutrophils % (A) 66.3 %; Platelet Count 321 X 10*3/uL (140-440); RBC 4.61 X 10*6/uL (4.10-5.20); RDW 14.8 % (11.5-14.5); WBC 7.89 X 10*3/uL (4.50-10.00)
[2024-01-25 15:19] LABS: BUN/Creat Ratio 22.12 Ratio (12.00-20.00); Blood Urea Nitrogen 17.7 mg/dL (9.0-27.0); Calcium 9.2 mg/dL (8.7-10.3); Carbon Dioxide 23.9 mmol/L (21.6-31.8); Chloride 102 mmol/L (96-109); Glucose 93 mg/dL (70-110); Potassium 3.9 mmol/L (3.5-5.5); Sodium 139 mmol/L (135-145)
[2024-01-25 15:30] LABS: Appearance,Urine Clear (Clear); Bilirubin,Urine Negative (Negative); Blood,Urine Negative (Negative); Color,Urine Yellow (Yellow); Ketones,Urine Negative (Negative); Nitrite,Urine Negative (Negative); Specific Gravity,Urine 1.014 (1.001-1.030); Urobilinogen,Urine 0.2 E.U./DL
[2024-01-25 15:42] LABS: Bacteria,Urine 3+ (None Seen)
== END | disposition home or self-care (01) ==
LOC: LABPAT 10:23
PROVIDERS: ATTEND Orthopaedic Surgery Orthopaedic Surgery of the Spine
DX: Z01.818 Encounter for other preprocedural examination
CPT/HCPCS: 36415; 71046; 80048; 81001; 85025; 85610; 85730; 86850; 86900; 86901; 93005

== ENCOUNTER 2024-02-03 05:53 | Day surgery (SDC) | payer MEDICARE ==
[2024-01-26 13:18] VITALS: BMI 22.8
[2024-02-03] MEDS: ONDANSETRON 4 MG/2 ML VIAL IVP ONE (06:54)
[2024-02-03] MEDS: LACTATED RINGERS 1,000 ML IV SCH (06:54)
[2024-02-03] MEDS ORDERED: fentaNYL (PF) 50 MCG/ML 2 ML AMP IVP PRN (07:00)
[2024-02-03] MEDS: IV FLUID CONTINUATION 1,000 ML IV ONE (07:18)
[2024-02-03] MEDS ORDERED: PROPOFOL 10 MG/ML 20 ML VIAL IV ONE (07:34)
[2024-02-03] MEDS ORDERED: SUCCINYLCHOLINE CHLORIDE 200 MG/10 ML VIAL IV ONE (07:34)
[2024-02-03] MEDS ORDERED: MIDAZOLAM 2 MG/2 ML VIAL ONE (07:34)
[2024-02-03] MEDS ORDERED: ePHEDrine 50 MG/ML 1 ML VIAL ONE (07:34)
[2024-02-03] MEDS ORDERED: DEXAMETHASONE SOD PHOSPHATE 4 MG/ML 1 ML VIAL ONE (07:34)
[2024-02-03] MEDS ORDERED: fentaNYL (PF) 50 MCG/ML 2 ML AMP ONE (07:34)
[2024-02-03] MEDS ORDERED: LIDOCAINE 1% INJ 10MG/ML (20 ML MDV) ONE (07:34)
[2024-02-03] MEDS ORDERED: ROCURONIUM 10 MG/ML (5 ML VIAL) IV ONE (07:34)
[2024-02-03] MEDS: ceFAZolin 1,000 MG in SODIUM CHLORIDE 0.9% IRRIGATIO 1,000 ML IRRIGATION PRN (07:38)
[2024-02-03] MEDS: LIDOCAINE 1%-EPI 1:100,000 20 ML VIAL SQ ONE (08:13)
[2024-02-03] MEDS: THROMBIN (BOVINE) 5,000 UNIT VIAL TOPICAL ONE (08:13)
[2024-02-03] MEDS: BUPIVACAINE (PF) 0.25% 30 ML VIAL SQ ONE (08:13)
--- NOTE | 2024-02-03 09:04 | XR ---
EXAMINATION TYPE: FL guidance operating room DATE OF EXAM: 02/03/2024 8:34 AM COMPARISON: Pre Operative Images if available both CT/MRI or plain film CLINICAL INDICATION: Female, 73 years old with history of L3-L4 Laminectomy; TECHNIQUE: FL guidance operating room, multiple fluoroscopic images provided for procedure. Total fluoroscopy time: 4 seconds Total submitted images to PACS: 2 DAP: 0.5338 mGym2 Gycm2 uGym2 cGycm2 or equivalent. FINDINGS: Fluoroscopic images during internal fixation/arthroplasty demonstrate fixation hardware in appropriat e position. Hardware appears intact. No immediate complication identified. IMPRESSION: 1. No evidence for intraoperative complication. 2. Please see the operative/procedural note for further details. [facility], , 02/03/2024 9:02 AM
[2024-02-03] MEDS: methylPREDNISolone ACETATE 40 MG/ML 1 ML VIAL MISCELLANE ONE (09:08)
[2024-02-03] MEDS ORDERED: DOCUSATE 100 MG CAP PO PRN (09:31)
[2024-02-03] MEDS ORDERED: HYDROcodone/APAP 7.5-325MG 1 EACH TAB PO PRN (09:31)
--- NOTE | 2024-02-03 09:31 | P.OP ---
Date of Procedure: 02/03/24 Preoperative Diagnosis: Herniated nucleus pulposus L3-4 with large extruded fragment Migrating fragment at L3-4 Severe right foraminal stenosis L3-4 and behind L3 Right lower extremity colopathy, right lower extremity weakness Postoperative Diagnosis: Herniated nucleus pulposus L3-4 with large extruded fragment Migrating fragment at L3-4 Severe right foraminal stenosis L3-4 and behind L3 Right lower extremity colopathy, right lower extremity weakness Plus evidence of disc herniation L2-3 with stenosis L2-3 Anesthesia: GETA Pathology: none sent Condition: stable Disposition: PACU Description of Procedure: BRIEF OPERATIVE NOTE Preoperative Diagnosis:Herniated nucleus pulposus L3-4 with large extruded fragment Migrating fragment at L3-4 Severe right foraminal stenosis L3-4 and behind L3 Right lower extremity colopathy, right lower extremity weakness Postoperative Diagnosis:Herniated nucleus pulposus L3-4 with large extruded fragment Migrating fragment at L3-4 Severe right foraminal stenosis L3-4 and behind L3 Right lower extremity colopathy, right lower extremity weakness Plus evidence of disc herniation with stenosis L2-3 Procedure: Laminectomy and decompression L3-4 and L2-3 Discectomy for decompression L3-4 and L2-3 Surgeon: Dr. Taveras Group Rooms Coordinator: Frank NICHOLS who is present throughout the entire the case persistence during positioning, dissection, exposure, visualization, and all crucial elements of the case as well as closure. Anesthesia: General anesthesia Estimated blood loss: Approximately 100 cc Complications: None apparent Components implanted: None Disposition: To recovery room in good stable condition. OPERATIVE INDICATIONS The patient has been having issues in their lower back and lower extremities. She was having severe issues and was having great difficulty with any activity even sitting changing positions walking and moving. She had severe pain particular at her right lower extremity down her right leg and was having weakness in her right leg. She is found to have a large disc herniation at L3-4 with extruded fragment extending up behind L3. There is some question as to whether the disc was extending from L2-3 or from L3-4 but we felt it was extending from L3-4. Her symptoms correlated with her disc herniation and stenosis. The patient has been through conservative treatment. She was not having any benefit at all and she was interested in surgical intervention. We discussed various treatment options including surgery, and the patient wishes to proceed with surgery We discussed the risk, patient's alternatives and benefits of surgery including but not limited to, risk of bleeding risk of infection, risk of need for further surgery, risk of decreased, loss of motion, loss of function, nerve damage, paralysis, heart attack, blindness and . OPERATIVE SUMMARY After discussing all the risks, patient alternatives and benefits at length, the patient elected to proceed with surgical intervention, signed informed consent, and presented for their procedure. The patient was seen and examined in the preoperative holding area and the surgical site was marked. The patient was given antibiotics and brought to the operating room. The patient was sedated and intubated by anesthesia in standard fashion. The patient was positioned on to the operating room table in a prone position on the appropriate frame which was well-padded and well molded. We were careful to pad any bony prominences and pressure points. We were careful to maintain the patient's cervical spine and good neutral alignment and position throughout. The patient was prepped and draped in a normal standard fashion. An appropriate timeout and keystone protocol performed. We were able to proceed with the surgery. Fluoroscopy was utilized to establish the appropriate level at L3-4. The local wound area was infiltrated with local anesthetic. An incision was made at the midline longitudinally over the appropriate levels. Dissection was taken down subcutaneously to the level of the fascia which was split midline. Dissection was taken over the lamina. Intraoperative fluoroscopy was taken which showed a marker at the appropriate level at L3-4. With the appropriate level positively confirmed, we were able to proceed with laminectomy. The wound was copiously irrigated and suctioned dry as had been done periodically throughout the case. I performed a laminectomy with a combination of curettes and a high-speed bur and Kerrison rongeurs. A small medial facetectomy was performed again further access. A partial foraminotomy was also performed at L3-4. Portions of the ligamentum flavum were taken down to expose the dura and traversing nerve root. I was able to mobilize the traversing nerve root and gain access to the disc space. Note was made of obvious compression from the disc. The disc herniation extended and there was evidence of disc material extending behind L3 from L3-4 disc extending up to the L2-3 disc. Protecting the soft tissue structures, a small annulotomy was established at L3-4. I was able to perform discectomy and remove any extruded disc fragments and any loose fragments from within the disc itself. There is large amounts of disc herniation with extruded disc fragmentation causing severe stenosis which was removed. This gave good decompression from the caudal side of the nerve root. There appeared to be further disc material cephalad to the nerve root and I was able to dissect behind L3 up to L2-3 disc. There is evidence of disc protrusion and stenosis at the lateral space at L2-3 and a partial discectomy was performed at L2-3 as well. This provided further decompression at the exiting and traversing nerve root and at the neural foramen. I tried to preserve the disc annulus that appeared stable to the levels. There were no further extruded fragments noted. There is no evidence of dural tear or leak. Good hemostasis maintained. The wound was copiously irrigated and suctioned dry. Good decompression and discectomy was noted. We were able to proceed with closure. The fascia was closed for a watertight closure. The subcuticular tissue was closed with absorbable suture. The wound was cleaned and dried and dressed with the appropriate dressing. The drapes were broken down. The patient was gently rolled back onto their hospital bed being careful to maintain their cervical spine and good neutral alignment and position. They were woken up by anesthesia, extubated, and brought to the recovery room in good stable condition. The patient will be admitted to the hospital for observation and for appropriate postoperative care, medical management and monitoring. We will continue to follow them closely about the postoperative course.
[2024-02-03] MEDS ORDERED: HYDROcodone/APAP 5-325MG 1 EACH TAB PO PRN (09:33)
[2024-02-03] MEDS ORDERED: BENZOCAINE/MENTHOL LOZENG 1 EACH LOZENGE MUCOUS MEM PRN (09:33)
[2024-02-03] MEDS ORDERED: ONDANSETRON 4 MG/2 ML VIAL IVP PRN (09:34)
[2024-02-03] MEDS ORDERED: ACETAMINOPHEN TAB 325 MG TAB PO PRN (09:34)
[2024-02-03] MEDS: DEXAMETHASONE SOD PHOSPHATE 4 MG/ML 1 ML VIAL IV ONE (12:45)
[2024-02-03] MEDS: lisinopriL 20 MG TAB PO SCH (17:14)
[2024-02-03] MEDS: amLODIPine 10 MG TAB PO SCH (17:14)
[2024-02-03] MEDS: SODIUM CHLORIDE 0.9% 1,000 ML IV SCH (17:15)
[2024-02-03] MEDS: KETOROLAC 15 MG/ML 1 ML VIAL IVP PRN (20:51)
[2024-02-04 04:25] VITALS: PULSE 86; TEMP 98
[2024-02-04] MEDS: ARTIFICIAL TEARS-HYPROMELLOSE DROPS 15 ML BTL BOTH EYES SCH (07:37)
[2024-02-04] MEDS: CHOLECALCIFEROL 25 MCG (1000 IU) TABLET PO SCH (07:38)
[2024-02-04] MEDS: MAGNESIUM OXIDE 400 MG TAB PO SCH (07:38)
[2024-02-04] MEDS: MULTIVITAMINS, THERA 1 EACH TAB PO SCH (07:38)
[2024-02-04] MEDS: ASCORBIC ACID 500 MG TAB PO SCH (07:38)
[2024-02-04] MEDS: SODIUM CHLORIDE 0.65% NASAL SPRAY 44 ML BTL NASAL SCH (07:39)
[2024-02-04] MEDS: ASPIRIN 81 MG PO SCH (07:41)
[2024-02-04] MEDS: SENNOSIDES-DOCUSATE SODIUM 1 EACH TAB PO SCH (07:45)
[2024-02-04] MEDS: PANTOPRAZOLE 40 MG TABLET PO SCH (07:45)
[2024-02-04 08:47] VITALS: BP 106/70; RESP 18
[2024-02-04] MEDS ORDERED: NON FORMULARY DRUG (Vitamin D3/Vitamin K2 (Mk4) [Vitamin K2 Plus D3 Tablet] 1 EACH Tablet) PO SCH (09:00)
[2024-02-04] MEDS ORDERED: ALOE VERA JUICE PO SCH (09:00)
[2024-02-04] MEDS ORDERED: VITAMIN B50 COMPLEX PO SCH (09:00)
[2024-02-04] MEDS ORDERED: NON FORMULARY DRUG (Ubidecarenone [Co Q-10] 400 MG Capsule) PO SCH (09:00)
[2024-02-04] MEDS ORDERED: NON FORMULARY DRUG (Potassium Gluconate [Potassium Gluconate] 99 MG Tablet) PO SCH (09:00)
--- NOTE | 2024-02-04 10:36 | FL ---
EXAMINATION TYPE: FL guidance operating room, XR lumbar spine 2 or 3V DATE OF EXAM: 02/03/2024 9:54 AM COMPARISON: Pre Operative Images if available both CT/MRI or plain film CLINICAL INDICATION: Female, 73 years old with history of LUM LAMINECT; TECHNIQUE: FL guidance operating room, XR lumbar spine 2 or 3V, multiple fluoroscopic images provided for procedure. Total fluoroscopy time: 4 seconds Total submitted images to PACS: 3 DAP: 0.8357 mGym2 Gycm2 uGym2 cGycm2 or equivalent. FINDINGS: Fluoroscopic images during internal fixation/arthroplasty demonstrate fixation hardware in appropriat e position. Hardware appears intact. No immediate complication identified. IMPRESSION: 1. No evidence for intraoperative complication. 2. Please see the operative/procedural note for further details. [facility], , 02/04/2024 10:33 AM
--- NOTE | 2024-02-04 11:25 | P.DS ---
Providers Date of admission: 02/03/2024 Expected date of discharge: 02/04/24 Attending physician: Tiera Taveras Primary care physician: Katy Cochran - Discharge Diagnosis(es) (1) Herniated nucleus pulposus, L3-4 right Current Visit: Yes Status: Acute (2) Right leg weakness Current Visit: Yes Status: Acute (3) Status post laminectomy Current Visit: Yes Status: Acute (4) Low back pain Current Visit: Yes Status: Acute (5) Hypertension Current Visit: Yes Status: Acute (6) Lumbar foraminal stenosis Current Visit: Yes Status: Acute (7) History of kidney stones Current Visit: No Status: Acute (8) Lumbar back pain with radiculopathy affecting right lower extremity Current Visit: No Status: Acute Hospital Course: This is a pleasant 73-year-old female who presented with L3-4 large extruded herniated nucleus pulposus with migrating fragment with severe right L3-4 foraminal stenosis behind L3 with right lower extremity radiculopathy and weakness who failed outpatient conservative therapy. She admitted for an L3-4 laminectomy and decompression with discectomy. The patient tolerated the procedure well and did well postoperatively. She states currently she has had 100% resolution of her right lower extremity radiculopathy. She does have some weakness ongoing but feels she has had some improvement. She has been able to ambulate to the restroom multiple times and is able to ambulate the hallway without significant difficulty. She is very happy with her progress postoperatively. Her pain is well-controlled. She has some discomfort at her surgical site at her lumbar spine but states her pain is only currently 1-2/10. She is ready for discharge home today. Condition on day of discharge stable. Patient was cleared preoperatively for surgery by Dr. Cochran. Patient currently denies any nausea, vomiting, fever, or chills. Patient is eating and voiding freely without difficulty. Patient may shower Optifoam dressing intact. Patient may remove Optifoam dressing in 3 days and shower without a dressing at that time. Patient should refrain from driving until at least after their first follow-up appointment in the office. Patient should avoid excessive bending, lifting, and twisting; no lifting greater than 10 pounds. Patient has hydrocodone at home as previously prescribed. She may take this medication for pain control as prescribed as needed. If she has difficulty with pain control following discharge, she may contact our office. Currently she does not feel she needs any further narcotic medications at the time of discharge. Patient's other medical diagnoses include hypertension and history of kidney stones. Physical Exam on day of discharge: Patient is awake, alert, and oriented 3 Vital signs stable Good chest excursion with deep inspiration and expiration Abdomen soft nontender No signs or symptoms of DVT; no calf pain Extensor hallucis longus, plantarflexion, and dorsiflexion positive sustained bilateral lower extremities Incision is clean, dry, and intact; no erythema, purulence, or signs of infection Optifoam dressing intact Procedures: L3-4 laminectomy and decompression with discectomy Patient Condition at Discharge: Stable Plan - Discharge Summary Discharge Rx Participant: No New Discharge Prescriptions: No Action amLODIPine BESYLATE/BENAZEPRIL [amLODIPine BESYLATE/BENAZEPRIL 10-20 mg] 1 each PO W/SUPPER Omeprazole 20 mg PO QAM Fiber 1 tbsp PO DAILY HYDROcodone/APAP 7.5-325MG [[place] 7.5-325] 1 tab PO Q8HR PRN PRN Reason: Pain Sodium Chloride [Saline Nasal Mist] 213 gm NS DAILY Estradiol. 10 mcg VAGINAL WE Cholecalciferol [Vitamin D3 (25 Mcg = 1000 Iu)] 25 mcg PO DAILY Vitamin B-50 Complex 1 tab PO DAILY Ubidecarenone [Co Q-10] 100 mg PO DAILY Potassium Gluconate 99 mg PO DAILY Magnesium 250 mg PO DAILY Cranberry Fruit Extract [Cranberry] 500 mg PO DAILY Aloe Vera Juice 1 dose PO DAILY Vitamin D3/Vitamin K2 (Mk4) [Vitamin K2 Plus D3 Tablet] 1 each PO DAILY Docusate [Colace] 100 mg PO HS PRN PRN Reason: Constipation Multivitamins, Thera [Multivitamin (formulary)] 1 tab PO DAILY Carboxymethylcellulose Sodium [Refresh Tears] 1 drop BOTH EYES DAILY Aspirin [Adult Low Dose Aspirin EC] 81 mg PO DAILY L.acidoph,Paracasei, B.lactis [Probiotic] 1 each PO DAILY Vitamin C (Unknown Dose) 1 tab PO DAILY Turmeric (Unknown Dose) 1 tab PO DAILY Krill Oil (Unknown Dose) 1 tab PO DAILY Discharge Medication List Fiber 1 tbsp PO DAILY 02/19/21 [History] Omeprazole 20 mg PO QAM 02/19/21 [History] amLODIPine BESYLATE/BENAZEPRIL [amLODIPine BESYLATE/BENAZEPRIL 10-20 mg] 1 each PO W/SUPPER 02/19/21 [History] Aloe Vera Juice 1 dose PO DAILY 01/26/24 [History] Aspirin [Adult Low Dose Aspirin EC] 81 mg PO DAILY 01/26/24 [History] Carboxymethylcellulose Sodium [Refresh Tears] 1 drop BOTH EYES DAILY 01/26/24 [History] Cholecalciferol [Vitamin D3 (25 Mcg = 1000 Iu)] 25 mcg PO DAILY 01/26/24 [History] Cranberry Fruit Extract [Cranberry] 500 mg PO DAILY 01/26/24 [History] Docusate [Colace] 100 mg PO HS PRN 01/26/24 [History] Estradiol. 10 mcg VAGINAL WE 01/26/24 [History] HYDROcodone/APAP 7.5-325MG [[place] 7.5-325] 1 tab PO Q8HR PRN 01/26/24 [History] Krill Oil (Unknown Dose) 1 tab PO DAILY 01/26/24 [History] L.acidoph,Paracasei, B.lactis [Probiotic] 1 each PO DAILY 01/26/24 [History] Magnesium 250 mg PO DAILY 01/26/24 [History] Multivitamins, Thera [Multivitamin (formulary)] 1 tab PO DAILY 01/26/24 [History] Potassium Gluconate 99 mg PO DAILY 01/26/24 [History] Sodium Chloride [Saline Nasal Mist] 213 gm NS DAILY 01/26/24 [History] Turmeric (Unknown Dose) 1 tab PO DAILY 01/26/24 [History] Ubidecarenone [Co Q-10] 100 mg PO DAILY 01/26/24 [History] Vitamin B-50 Complex 1 tab PO DAILY 01/26/24 [History] Vitamin C (Unknown Dose) 1 tab PO DAILY 01/26/24 [History] Vitamin D3/Vitamin K2 (Mk4) [Vitamin K2 Plus D3 Tablet] 1 each PO DAILY 01/26/24 [History] Follow up Appointment(s)/Referral(s): Tiera Taveras DO [Doctor of Osteopathic Medicine] - 02/12/24 9:00 am (With Jorge Alberto) Activity/Diet/Wound Care/Special Instructions: Keep site clean. May shower with waterproof Optifoam intact. Do not soak in a tub. After 72 hours postoperatively, patient May remove dressing and then may shower with area uncovered. Leave glue intact and allow it to fray off on its own. May ambulate as tolerated. Avoid heavy or rigorous activity. No repetitive bending twisting or lifting. No overhead work. Patient states that she has oral pain medications already at home. She can continue these on as needed basis. Discharge Disposition: HOME SELF-CARE
== END 2024-02-04 12:03 | disposition home or self-care (01) ==
LOC: OR 05:53 → 4SSUR 09:32 → OR 02-04 12:03
PROVIDERS: ATTEND Orthopaedic Surgery Orthopaedic Surgery of the Spine
CPT/HCPCS: 72100

== ENCOUNTER → 2024-03-21 | Outpatient (CLI) | payer MEDICARE ==
--- NOTE | 2024-03-22 10:29 | BD ---
EXAMINATION TYPE: Axial Bone Density DATE OF EXAM: 03/21/2024 CLINICAL HISTORY: 73 years old Female. ICD-10 CODE: Z78.0 ASYMP BEREKET STATE , Additional History: Height: 63.5 in Weight: 135 lbs RISK FACTORS History of Wrist Fracture: yes lt wrist age 6 Surgery to Spine: l spine surgery age 73 EXAM MEASUREMENTS: Bone mineral densitometry was performed using the [employer]. l -spine surgery 2023 Bone mineral density about the R hip (g/cm2): 0.802 Bone mineral density about the L hip (g/cm2): 0.868 T Score values are as follows: -----R Neck: -2.1 -----L Neck: -1.9 -----R Total: -1.6 -----L Total: -1.1 Z Score values are as follows: -----R Neck: -0.3 -----L Neck: 0.0 -----R Total: 0.1 -----L Total: 0.6 Bone mineral density has: Decreased -15.0% since study of: 11/23/2012 Bone mineral density about the R Wrist (g/cm2): 0.401 T Score values are as follows: -----Dist. R+U: -4.9 -----Prox. R+U: -3.9 -----Radius total: -4.5 Z Score values are as follows: -----Dist. R+U: -2.8 -----Prox. R+U: -1.8 -----Radius total: -2.5 Bone mineral density baseline FRAX%s: The graph provided illustrates a 13.3% chance for a major osteoporotic fx and a 3.3% chance f or the hips probability for fx in 10 years time. IMPRESSION: Osteoporosis (T Score less than -2.5). There is increased fracture risk and therapy is usually indicated based on age. Re-Screen 1-2 years. NOTE: T-SCORE=SD OF THE YOUNG ADULT MEAN. [facility], , 03/22/2024 10:27 AM
--- NOTE | 2024-03-23 12:49 | MM ---
Reason for Exam: Screening (asymptomatic). Last screening mammogram was performed 12 month(s) ago. Patient History: Menarche at age 15. First Full-Term at age 25. Hysterectomy at age 71. Postmenopausal. Patient has history of breast feeding. Currently using Estrogen, beginning at age 70 for 1 year. Paternal cousin had breast cancer, age 60. Risk Values: Sophie 5 year model risk: 1.4%. NCI Lifetime model risk: 3.8%. Prior Study Comparison: 03/06/2021 Bilateral Screening Mammogram, [facility]. 03/12/2022 Bilateral MG screening mammo w CAD, [facility]. 03/20/2023 Bilateral MG screening mammo w CAD, [facility]. Tissue Density: The breasts are heterogeneously dense, which may obscure small masses. Findings: Analyzed By CAD. There is no suspicious group of microcalcifications or new suspicious mass in either breast. Overall Assessment: Negative, BI-RAD 1 Management: Screening Mammogram of both breasts in 1 year. . Patient should continue monthly self-breast exams. A clinical breast exam by your physician is recommended on an annual basis. This exam should not preclude additional follow-up of suspicious palpable abnormalities. Note on Sophie scores and lifetime risk: 1. A Sophie score greater than 3% is considered moderate risk. If this is the case, consider specialist referral to assess eligibility for a risk reducing agent. 2. If overall lifetime risk for the development of breast cancer is 20% or higher, the patient may qualify for future screening with alternating mammogram and breast MRI. [facility], , 03/23/2024 12:47 PM. Electronically signed and approved by: Curry Blanca M.D. Radiologis
== END | disposition home or self-care (01) ==
LOC: RADMAMWWP 14:33
PROVIDERS: ATTEND Obstetrics & Gynecology
DX: Z12.31 Encounter for screening mammogram for malignant neoplasm of breast (principal); Z13.820 Encounter for screening for osteoporosis; M81.0 Age-related osteoporosis without current pathological fracture; M85.89 Other specified disorders of bone density and structure, multiple sites; Z78.0 Asymptomatic menopausal state
CPT/HCPCS: 77067; 77080

== ENCOUNTER 2024-03-25 09:25 | Emergency (ER) | payer MEDICARE ==
--- NOTE | 2024-03-25 09:48 | ED ---
GI Bleed HPI - General Source: patient, RN notes reviewed Mode of arrival: ambulatory Limitations: no limitations <Siena Elizabeth - Last Filed: 03/25/24 09:47> <Lane Núñez - Last Filed: 03/25/24 12:58> - General Chief complaint: GI Bleed Stated complaint: blood in stool Time Seen by Provider: 03/25/24 09:40 - History of Present Illness Initial comments: Quick Note: This is a 73-year-old female who presents to the emergency department for rectal bleeding. States that yesterday she had diarrhea and nausea. Last night this then progressed to blood in her stool and she has gotten up at least 18 times overnight to have a bowel movement. States that each time she only has about 2 tablespoons of blood in her stool. Describes this as bright red. Currently has some pelvic cramping. Denies any history of rectal bleeding. Denies any history of diverticulosis. Not taking any blood thinners. (Siena Elizabeth) 73-year-old female presents emergency department stating that last night she started having severe diarrhea while she was at a [facility] practice. Patient states that persisted through the night and today she has probably had diarrhea 20 times. Patient states the last few times she has had diarrhea that she noted that there was some blood in the stool. Patient denies any abdominal pain. Patient has any rectal pain. Patient denies any nausea vomiting diarrhea. Gregory rodriguez states she is able to drink and eat without problem. Patient denies any recent fever chills or cough. Patient denies being on any blood thinners (Lane Núñez) - Related Data Home Medications Medication Instructions Recorded Confirmed Fiber 1 tbsp PO DAILY 02/19/21 02/03/24 Omeprazole 20 mg PO QAM 02/19/21 02/03/24 amLODIPine BESYLATE/BENAZEPRIL 1 each PO W/SUPPER 02/19/21 02/03/24 [amLODIPine BESYLATE/BENAZEPRIL 10-20 mg] Aloe Vera Juice 1 dose PO DAILY 01/26/24 02/03/24 Aspirin [Adult Low Dose Aspirin EC] 81 mg PO DAILY 01/26/24 02/03/24 Carboxymethylcellulose Sodium 1 drop BOTH EYES DAILY 01/26/24 02/03/24 [Refresh Tears] Cholecalciferol [Vitamin D3 (25 25 mcg PO DAILY 01/26/24 02/03/24 Mcg = 1000 Iu)] Cranberry Fruit Extract [Cranberry] 500 mg PO DAILY 01/26/24 02/03/24 Docusate [Colace] 100 mg PO HS PRN 01/26/24 02/03/24 Estradiol. 10 mcg VAGINAL WE 01/26/24 02/03/24 HYDROcodone/APAP 7.5-325MG [[place] 1 tab PO Q8HR PRN 01/26/24 02/03/24 7.5-325] Krill Oil (Unknown Dose) 1 tab PO DAILY 01/26/24 02/03/24 L.acidoph,Paracasei, B.lactis 1 each PO DAILY 01/26/24 02/03/24 [Probiotic] Magnesium 250 mg PO DAILY 01/26/24 02/03/24 Multivitamins, Thera [Multivitamin 1 tab PO DAILY 01/26/24 02/03/24 (formulary)] Potassium Gluconate 99 mg PO DAILY 01/26/24 02/03/24 Sodium Chloride [Saline Nasal Mist] 213 gm NS DAILY 01/26/24 02/03/24 Turmeric (Unknown Dose) 1 tab PO DAILY 01/26/24 02/03/24 Ubidecarenone [Co Q-10] 100 mg PO DAILY 01/26/24 02/03/24 Vitamin B-50 Complex 1 tab PO DAILY 01/26/24 02/03/24 Vitamin C (Unknown Dose) 1 tab PO DAILY 01/26/24 02/03/24 Vitamin D3/Vitamin K2 (Mk4) 1 each PO DAILY 01/26/24 02/03/24 [Vitamin K2 Plus D3 Tablet] Allergies Allergy/AdvReac Type Severity Reaction Status Date / Time hydromorphone [From Dilaudid] Allergy Nausea Verified 03/25/24 12:45 nitrofurantoin Allergy Nausea Verified 03/25/24 12:45 Sulfa (Sulfonamide Allergy Rash/Hives Verified 03/25/24 12:45 Antibiotics) sulfamethoxazole Allergy Rash/Hives Verified 03/25/24 12:45 [From Bactrim] trimethoprim [From Bactrim] Allergy Rash/Hives Verified 03/25/24 12:45 Review of Systems ROS Other: All systems not noted in ROS Statement are negative. <Vogley,Siena - Last Filed: 03/25/24 09:47> ROS Other: All systems not noted in ROS Statement are negative. <Lane Núñez - Last Filed: 03/25/24 12:58> ROS Statement: Those systems with pertinent positive or pertinent negative responses have been documented in the HPI. Past Medical History Past Medical History: Hypertension, Mitral Valve Prolapse (MVP), Renal Disease Additional Past Medical History / Comment(s): Pt has had R sided back pain with BMs, nephrolithiasis/pt has passed kidney stones on her own, UTIs, UTI with sepsis, MVP, curvature lower spine, seasonal allergies. History of Any Multi-Drug Resistant Organisms: None Reported Past Surgical History: Orthopedic Surgery, Tonsillectomy Additional Past Surgical History / Comment(s): colonoscopies with benign polypectomy, deviated septum, bilateral feet bunionectomies/5th toe surgery to correct bones, vaginal polyps-benign removed. Past Anesthesia/Blood Transfusion Reactions: No Reported Reaction Past Psychological History: No Psychological Hx Reported Smoking Status: Never smoker Past Alcohol Use History: Occasional Past Drug Use History: None Reported - Past Family History Father Family Medical History: Cancer Additional Family Medical History / Comment(s): AT AGE 56 FROM COLON CANCER. Mother Family Medical History: Cancer Additional Family Medical History / Comment(s): AGE 88 FROM A RARE SARCOMA RT UPPER ARM MSUCLE. Sister(s) Family Medical History: Deep Vein Thrombosis (DVT) Additional Family Medical History / Comment(s): PT HAS 3 SISTERS. #1 W/ MS, #2 DDD AND COLITIS, #3 DDD. Liver cancer. <Siena Elizabeth - Last Filed: 03/25/24 09:47> General Exam Limitations: no limitations <Siean Elizabeth - Last Filed: 03/25/24 09:47> <Lane Núñez - Last Filed: 03/25/24 12:58> - General Exam Comments Initial Comments: Visual Physical Exam Vital signs reviewed General: Well-appearing, nontoxic, no acute distress. Head: Normocephalic, atraumatic Eyes: PERRLA, EOMI ENT: Airway patent Chest: Nonlabored breathing Skin: No visual rash, normal skin tone Neuro: Alert and oriented 3 Musculoskeletal: No gross abnormalities (Siena Elizabeth) GENERAL: Patient is well-developed and well-nourished. Patient is nontoxic and well- hydrated and is in no acute distress. ENT: Neck is soft and supple. No significant lymphadenopathy is noted. Oropharynx is clear. Moist mucous membranes. Neck has full range of motion without eliciting any pain. EYES: The sclera were anicteric and conjunctiva were pink and moist. Extraocular movements were intact and pupils were equal round and reactive to light. Eyelids were unremarkable. PULMONARY: Unlabored respirations. Good breath sounds bilaterally. No audible rales rhonchi or wheezing was noted. CARDIOVASCULAR: There is a regular rate and rhythm without any murmurs gallops or rubs. ABDOMEN: Soft and nontender with normal bowel sounds. SKIN: Skin is clear with no lesions or rashes and otherwise unremarkable. NEUROLOGIC: Patient is alert and oriented x3. Cranial nerves II through XII are grossly intact. Motor and sensory are also intact. Normal speech, volume and content. Symmetrical smile. MUSCULOSKELETAL: Normal extremities with adequate strength and full range of motion. LYMPHATICS: No significant lymphadenopathy is noted PSYCHIATRIC: Normal psychiatric evaluation. (Lane Núñez) Course Vital Signs 03/25/24 03/25/24 09:26 12:00 Temperature 97.4 F L Pulse Rate 97 60 Respiratory 20 Rate Blood Pressure 147/85 136/82 O2 Sat by Pulse 99 Oximetry Medical Decision Making <Siena Elizabeth - Last Filed: 03/25/24 09:47> - Lab Data Result diagrams: 03/25/24 09:48 03/25/24 09:48 <Lane Núñez - Last Filed: 03/25/24 12:58> - Medical Decision Making I performed the QuickNote portion of this chart. Signed Siena Elizabeth PA-C. (Siena Elizabeth) Was pt. sent in by a medical professional or institution (GREGORY Foy, ICT SALES ASSISTANT, urgent care, hospital, or fci...) When possible be specific @ -No Did you speak to anyone other than the patient for history (EMS, parent, family, police, friend...)? What history was obtained from this source @ -No Did you review nursing and triage notes (agree or disagree)? Why? @ -I reviewed and agree with nursing and triage notes Were old charts reviewed (outside hosp., previous admission, EMS record, old EKG, old radiological studies, urgent care reports/EKG's, fci records)? Report findings @ -No old charts were reviewed Differential Diagnosis? @ -Differential GI Bleed: Esophageal varices, aortoenteric fistula, Blanca-Judd, gastritis, peptic ulcer disease, diverticulosis, inflammatory bowel disease, hemorrhoids, fissure, colitis, malignancy, Meckel's diverticulum, this is not meant to be an all-inclusive list. EKG interpreted by me (3pts min.). @ -As above X-rays interpreted by me (1pt min.). @ -None done CT interpreted by me (1pt min.). @ -None done U/S interpreted by me (1pt. min.). @ -None done What testing was considered but not performed or refused? (CT, X-rays, U/S, labs)? Why? @ -None What meds were considered but not given or refused? Why? @ -None Did you discuss the management of the patient with other professionals (professionals i.e. , PA, ICT SALES ASSISTANT, lab, RT, psych nurse, social and political studies professor, supervising editor news reel, teacher, unemployment insurance hearing officer, case maker)? Give summary @ -No Was smoking cessation discussed for >3mins.? @ -No Was critical care preformed (if so, how long)? @ -No Were there social determinants of health that impacted care today? How? (Homelessness, low income, unemployed, alcoholism, drug addiction, transportation, low edu. Level, literacy, decrease access to med. care, [facility], rehab)? @ -No Was there de-escalation of care discussed even if they declined (Discuss DNR or withdrawal of care, Hospice)? DNR status @ -No What co-morbidities impacted this encounter? (DM, HTN, Smoking, COPD, CAD, Cancer, CVA, ARF, Chemo, Hep., AIDS, mental health diagnosis, sleep apnea, morbid obesity)? @ -None Was patient admitted / discharged? Hospital course, mention meds given and route, prescriptions, significant lab abnormalities, going to OR and other pertinent info. @ -Patient is able to tolerate p.o. fluids and food. Patient hemoglobin is stable. Patient will take Lomotil and follow-up with a primary medical care doctor return if the bleeding gets worse Undiagnosed new problem with uncertain prognosis? @ -No Drug Therapy requiring intensive monitoring for toxicity (Heparin, Nitro, In sulin, Cardizem)? @ -No Were any procedures done? @ -No Diagnosis/symptom? @ -Diarrhea Acute, or Chronic, or Acute on Chronic? @ -Acute Uncomplicated (without systemic symptoms) or Complicated (systemic symptoms)? @ -Uncomplicated Side effects of treatment? @ -No Exacerbation, Progression, or Severe Exacerbation? @ -No Diagnosis/symptom? @ -GI bleed Acute, or Chronic, or Acute on Chronic? @ -Acute Uncomplicated (without systemic symptoms) or Complicated (systemic symptoms)? @ -Complicated Side effects of treatment? @ -None Exacerbation, Progression, or Severe Exacerbation] @ -No Poses a threat to life or bodily function? @ -No Poses a threat to life or bodily function? How? (Chest pain, [place], [place], pneumonia, PE, COPD, DKA, ARF, appy, cholecystitis, CVA, Diverticulitis, Homicidal, Suicidal, threat to staff... and all critical care pts) @ -No (Lane Núñez) - Lab Data Lab Results 03/25/24 03/25/24 03/25/24 Range/Units 09:48 09:48 09:48 WBC 11.3 H (3.8-10.6) k/uL RBC 4.86 (3.80-5.40) m/uL Hgb 14.9 (11.4-16.0) gm/dL Hct 45.4 (34.0-46.0) % MCV 93.4 (80.0-100.0) fL MCH 30.6 (25.0-35.0) pg MCHC 32.8 (31.0-37.0) g/dL RDW 13.4 (11.5-15.5) % Plt Count 286 (150-450) k/uL MPV 7.4 Neutrophils % 81 % Lymphocytes % 11 % Monocytes % 5 % Eosinophils % 1 % Basophils % 0 % Neutrophils # 9.1 H (1.3-7.7) k/uL Lymphocytes # 1.3 (1.0-4.8) k/uL Monocytes # 0.6 (0-1.0) k/uL Eosinophils # 0.1 (0-0.7) k/uL Basophils # 0.0 (0-0.2) k/uL PT 9.7 L (10.0-12.5) sec INR 0.9 (<1.2) APTT 21.0 L (22.0-30.0) sec Sodium 140 (137-145) mmol/L Potassium 3.9 (3.5-5.1) mmol/L Chloride 106 (98-107) mmol/L Carbon Dioxide 23 (22-30) mmol/L Anion Gap 11 mmol/L BUN 21 H (7-17) mg/dL Creatinine 0.68 (0.52-1.04) mg/dL Est GFR (CKD-EPI)AfAm >90 (>60 ml/min/1.73 sqM) Est GFR (CKD-EPI)NonAf 88 (>60 ml/min/1.73 sqM) Glucose 126 H (74-99) mg/dL Calcium 9.9 (8.4-10.2) mg/dL Magnesium 2.1 (1.6-2.3) mg/dL Total Bilirubin 1.1 (0.2-1.3) mg/dL AST 24 (14-36) U/L ALT 22 (4-34) U/L Alkaline Phosphatase 82 (38-126) U/L Troponin I (0.000-0.034) ng/mL Total Protein 7.3 (6.3-8.2) g/dL Albumin 4.6 (3.5-5.0) g/dL 03/25/24 Range/Units 09:48 WBC (3.8-10.6) k/uL RBC (3.80-5.40) m/uL Hgb (11.4-16.0) gm/dL Hct (34.0-46.0) % MCV (80.0-100.0) fL MCH (25.0-35.0) pg MCHC (31.0-37.0) g/dL RDW (11.5-15.5) % Plt Count (150-450) k/uL MPV Neutrophils % % Lymphocytes % % Monocytes % % Eosinophils % % Basophils % % Neutrophils # (1.3-7.7) k/uL Lymphocytes # (1.0-4.8) k/uL Monocytes # (0-1.0) k/uL Eosinophils # (0-0.7) k/uL Basophils # (0-0.2) k/uL PT (10.0-12.5) sec INR (<1.2) APTT (22.0-30.0) sec Sodium (137-145) mmol/L Potassium (3.5-5.1) mmol/L Chloride (98-107) mmol/L Carbon Dioxide (22-30) mmol/L Anion Gap mmol/L BUN (7-17) mg/dL Creatinine (0.52-1.04) mg/dL Est GFR (CKD-EPI)AfAm (>60 ml/min/1.73 sqM) Est GFR (CKD-EPI)NonAf (>60 ml/min/1.73 sqM) Glucose (74-99) mg/dL Calcium (8.4-10.2) mg/dL Magnesium (1.6-2.3) mg/dL Total Bilirubin (0.2-1.3) mg/dL AST (14-36) U/L ALT (4-34) U/L Alkaline Phosphatase (38-126) U/L Troponin I <0.012 (0.000-0.034) ng/mL Total Protein (6.3-8.2) g/dL Albumin (3.5-5.0) g/dL Disposition <Siena Elizabeth - Last Filed: 03/25/24 09:47> Is patient prescribed a controlled substance at d/c from ED?: No Time of Disposition: 12:58 <Lane Núñez - Last Filed: 03/25/24 12:58> Clinical Impression: Diarrhea, GI bleed Additional Instructions: Patient should take Lomotil as prescribed patient only should take if having diarrhea Patient should follow-up with PMD Return to the emergency department if increased bleeding or abdominal pain or fever Referrals: Katy Cochran MD [Primary Care Provider] - 1-2 days
[2024-03-25 10:01] LABS: Basophils % (A) 0 %; Eosinophils # (A) 0.1 k/uL (0-0.7); Eosinophils % (A) 1 %; HCT 45.4 % (34.0-46.0); HGB 14.9 gm/dL (11.4-16.0); Lymphocytes # (A) 1.3 k/uL (1.0-4.8); Lymphocytes % (A) 11 %; MCH 30.6 pg (25.0-35.0); MCHC 32.8 g/dL (31.0-37.0); MCV 93.4 fL (80.0-100.0); Mean Platelet Volume 7.4; Monocytes # (A) 0.6 k/uL (0-1.0); Monocytes % (A) 5 %; Neutrophils # (A) 9.1 k/uL (1.3-7.7); Neutrophils % (A) 81 %; Platelet Count 286 k/uL (150-450); RBC 4.86 m/uL (3.80-5.40); RDW 13.4 % (11.5-15.5); WBC 11.3 k/uL (3.8-10.6)
[2024-03-25 10:17] LABS: ALT 22 U/L (4-34); AST 24 U/L (14-36); African American GFR (CKD) >90 (>60 ml/min/1.73 sqM); Albumin 4.6 g/dL (3.5-5.0); Alkaline Phosphatase 82 U/L (38-126); Anion Gap 11 mmol/L; Blood Urea Nitrogen 21 mg/dL (7-17); Calcium 9.9 mg/dL (8.4-10.2); Carbon Dioxide 23 mmol/L (22-30); Chloride 106 mmol/L (98-107); Glucose 126 mg/dL (74-99); Magnesium 2.1 mg/dL (1.6-2.3); Non-African American GFR(CKD) 88 (>60 ml/min/1.73 sqM); Potassium 3.9 mmol/L (3.5-5.1); Sodium 140 mmol/L (137-145); Total Bilirubin 1.1 mg/dL (0.2-1.3); Total Protein 7.3 g/dL (6.3-8.2)
[2024-03-25 10:29] LABS: INR 0.9 (<1.2); Prothrombin Time 9.7 sec (10.0-12.5)
[2024-03-25 12:00] VITALS: BP 136/82; PULSE 60
[2024-03-25 13:08] VITALS: RESP 16; TEMP 98
[2024-03-25] MEDS: DIPHENOX-ATROP 2.5-0.025 MG 1 EACH TAB PO STA (13:12)
[2024-03-25] MEDS: DIPHENOX-ATROP STARTER PACK 8 TAB BTL PO STA (13:13)
== END 2024-03-25 13:13 ==
LOC: EC 09:25
DX: K92.2 Gastrointestinal hemorrhage, unspecified (principal); R19.7 Diarrhea, unspecified; Z88.1 Allergy status to other antibiotic agents; Z88.2 Allergy status to sulfonamides; Z88.5 Allergy status to narcotic agent
CPT/HCPCS: 36415; 80053; 83735; 84484; 85025; 85610; 85730; 99284